=== PATIENT | female | born 1955 | race African-American/Black ===

== ENCOUNTER → 2016-12-06 | Outpatient (CLI) | payer BC ==
[2016-12-06 08:04] LABS: ALT 41 U/L (9-52); AST 32 U/L (14-36); Alkaline Phosphatase 118 U/L (38-126); Anion Gap 9 mmol/L; Blood Urea Nitrogen 12 mg/dL (7-17); Calcium 9.5 mg/dL (8.4-10.2); Carbon Dioxide 32 mmol/L (22-30); Chloride 103 mmol/L (98-107); Cholesterol 213 mg/dL (<200); Glucose 95 mg/dL (74-99); HDL Cholesterol 49 mg/dL (40-60); Non-African American GFR(MDRD) >60 (>60 ml/min/1.73 sqM); Potassium 4.2 mmol/L (3.5-5.1); Sodium 144 mmol/L (137-145); Total Bilirubin 0.8 mg/dL (0.2-1.3); Total Protein 7.1 g/dL (6.3-8.2); Triglycerides 117 mg/dL (<150)
== END | disposition home or self-care (01) ==
LOC: LABWHC1 06:44
PROVIDERS: ATTEND Family Medicine
DX: E03.9 Hypothyroidism, unspecified (principal); E78.5 Hyperlipidemia, unspecified; E56.9 Vitamin deficiency, unspecified
CPT/HCPCS: 36415; 80053; 80061; 82306; 84439; 84443

== ENCOUNTER → 2017-02-16 | Outpatient (CLI) | payer BC ==
--- NOTE | 2017-02-19 09:54 | MM ---
Reason for exam: screening (asymptomatic). Last mammogram was performed 1 year ago. History: Patient is postmenopausal. Physical Findings: A clinical breast exam by your physician is recommended on an annual basis and results should be correlated with mammographic findings. MG 3D Screening Mammo W/Cad Bilateral CC and MLO view(s) were taken. Prior study comparison: February 16, 2016, bilateral MG 3d screening mammo w/cad. February 09, 2015, bilateral MG screening mammo w CAD. The breast tissue is almost entirely fat. There is no discrete abnormality. No significant changes when compared with prior studies. ASSESSMENT: Negative, BI-RAD 1 RECOMMENDATION: Routine screening mammogram of both breasts in 1 year.
== END | disposition home or self-care (01) ==
LOC: RADMAMWWP 08:44
PROVIDERS: ATTEND Obstetrics & Gynecology
DX: Z12.31 Encounter for screening mammogram for malignant neoplasm of breast (principal)
CPT/HCPCS: 77063; G0202

== ENCOUNTER → 2017-06-22 | Outpatient (CLI) | payer BC ==
[2017-06-22 08:29] LABS: Basophils # (A) 0.1 k/uL (0-0.2); Basophils % (A) 1 %; CH 27.2; CHCM 32.2; Eosinophils # (A) 0.1 k/uL (0-0.7); Eosinophils % (A) 2 %; HCT 42.9 % (34.0-46.0); HDW 2.58; HGB 13.7 gm/dL (11.4-16.0); Luc # (Auto) 0.13; Luc % (Auto) 2; Lymphocytes # (A) 2.5 k/uL (1.0-4.8); Lymphocytes % (A) 42 %; MCHC 31.9 g/dL (31.0-37.0); MCV 84.9 fL (80.0-100.0); Mean Platelet Volume 7.8; Monocytes # (A) 0.2 k/uL (0-1.0); Monocytes % (A) 4 %; Neutrophils # (A) 2.9 k/uL (1.3-7.7); Neutrophils % (A) 50 %; RBC 5.06 m/uL (3.80-5.40); RDW 15.5 % (11.5-15.5); WBC 5.9 k/uL (3.8-10.6); WBC (Perox) 5.43
[2017-06-22 09:00] LABS: ALT 34 U/L (9-52); AST 24 U/L (14-36); Alkaline Phosphatase 149 U/L (38-126); Anion Gap 9 mmol/L; Blood Urea Nitrogen 12 mg/dL (7-17); Calcium 9.6 mg/dL (8.4-10.2); Carbon Dioxide 26 mmol/L (22-30); Chloride 108 mmol/L (98-107); Cholesterol 204 mg/dL (<200); Glucose 90 mg/dL (74-99); HDL Cholesterol 46 mg/dL (40-60); Non-African American GFR(MDRD) >60 (>60 ml/min/1.73 sqM); Potassium 3.9 mmol/L (3.5-5.1); Sodium 143 mmol/L (137-145); Total Bilirubin 0.6 mg/dL (0.2-1.3)
== END | disposition home or self-care (01) ==
LOC: LABWHC1 07:25
PROVIDERS: ATTEND Family Medicine
DX: E05.90 Thyrotoxicosis, unspecified without thyrotoxic crisis or storm (principal); E78.5 Hyperlipidemia, unspecified; I10 Essential (primary) hypertension; E55.9 Vitamin D deficiency, unspecified
CPT/HCPCS: 36415; 80053; 80061; 82306; 84439; 84443; 84481; 85025

== ENCOUNTER → 2017-12-20 | Outpatient (CLI) | payer BC ==
[2017-12-20 07:27] LABS: Basophils # (A) 0.1 k/uL (0-0.2); Basophils % (A) 1 %; Eosinophils # (A) 0.1 k/uL (0-0.7); Eosinophils % (A) 1 %; HCT 43.9 % (34.0-46.0); HGB 14.2 gm/dL (11.4-16.0); Lymphocytes # (A) 2.4 k/uL (1.0-4.8); Lymphocytes % (A) 38 %; MCH 26.4 pg (25.0-35.0); MCHC 32.4 g/dL (31.0-37.0); MCV 81.3 fL (80.0-100.0); Mean Platelet Volume 7.3; Monocytes # (A) 0.3 k/uL (0-1.0); Monocytes % (A) 5 %; Neutrophils # (A) 3.2 k/uL (1.3-7.7); Neutrophils % (A) 52 %; Platelet Count 260 k/uL (150-450); RDW 14.2 % (11.5-15.5); WBC 6.2 k/uL (3.8-10.6)
[2017-12-20 07:35] LABS: ALT 33 U/L (9-52); AST 26 U/L (14-36); Alkaline Phosphatase 144 U/L (38-126); Anion Gap 9 mmol/L; Calcium 9.7 mg/dL (8.4-10.2); Carbon Dioxide 28 mmol/L (22-30); Chloride 106 mmol/L (98-107); Cholesterol 196 mg/dL (<200); Glucose 94 mg/dL (74-99); HDL Cholesterol 44 mg/dL (40-60); LDL Cholesterol,Calculated 123 mg/dL (0-99); Sodium 143 mmol/L (137-145); Total Bilirubin 0.6 mg/dL (0.2-1.3); Total Protein 7.1 g/dL (6.3-8.2); Triglycerides 147 mg/dL (<150)
[2017-12-20 07:49] LABS: Blood Urea Nitrogen 13 mg/dL (7-17); T4, Free (Free Thyroxine) 1.02 ng/dL (0.78-2.19)
[2017-12-20 11:34] LABS: Vitamin D 25 Hydroxy 54.1 ng/mL (30.0-100.0)
[2017-12-20 12:22] LABS: Hepatitis C IgG Antibody Non-Reactive (Non-Reactive)
== END | disposition home or self-care (01) ==
LOC: LABWHC1 06:34
PROVIDERS: ATTEND Family Medicine
DX: Z00.00 Encounter for general adult medical examination without abnormal findings (principal); I10 Essential (primary) hypertension; E03.9 Hypothyroidism, unspecified; E55.9 Vitamin D deficiency, unspecified; Z11.59 Encounter for screening for other viral diseases
CPT/HCPCS: 36415; 80053; 80061; 82306; 84439; 84443; 84481; 85025; 86803

== ENCOUNTER → 2018-02-21 | Outpatient (CLI) | payer BC ==
--- NOTE | 2018-02-21 08:46 | MM ---
Reason for exam: screening (asymptomatic). Last mammogram was performed 1 year ago. History: Patient is postmenopausal. Physical Findings: A clinical breast exam by your physician is recommended on an annual basis and results should be correlated with mammographic findings. MG 3D Screening Mammo W/Cad Bilateral CC and MLO view(s) were taken. Prior study comparison: February 16, 2017, bilateral MG 3d screening mammo w/cad. February 16, 2016, bilateral MG 3d screening mammo w/cad. There are scattered fibroglandular densities. No suspicious abnormality. No significant changes when compared with prior studies. ASSESSMENT: Negative, BI-RAD 1 RECOMMENDATION: Routine screening mammogram of both breasts in 1 year.
== END | disposition home or self-care (01) ==
LOC: RADMAMWWP 06:53
PROVIDERS: ATTEND Obstetrics & Gynecology
DX: Z12.31 Encounter for screening mammogram for malignant neoplasm of breast (principal)
CPT/HCPCS: 77063; 77067

== ENCOUNTER → 2018-03-08 | Outpatient (CLI) | payer BC ==
--- NOTE | 2018-03-08 10:00 | BD ---
EXAMINATION TYPE: Axial Bone Density DATE OF EXAM: 03/08/2018 COMPARISON: 02.07.2013 CLINICAL HISTORY: 62 YR OLD FEMALE....ICD-10 CODE: Z13.820 SCREENING Height: 65 Weight: 246 FRAX RISK QUESTIONS: NONE TO NOTE RISK FACTORS HISTORY OF: HX OF FX TO RT ANKLE, WITH SURGICAL REPAIR When: > 50 YRS OLD Active: YES Diet low in dairy products/other sources of calcium: NO Postmenopausal woman: YES AT AGE 51 MEDICATIONS: Thyroid Medications: YES ARMOR THYROID, X15 YRS Additional Medications: BP MEDS, REFLUX, VIT D Additional History: HYPERTENSION EXAM MEASUREMENTS: Bone mineral densitometry was performed using the [employer] System. Bone mineral density as measured about the Lumbar spine is: ----- L1-L4(G/cm2): 1.463 T Score Values are as follows: ----- L1: 0.9 ----- L2: 1.3 ----- L3: 3.1 ----- L4: 3.4 ----- L1-L4: 2.4 Bone mineral density has: Decreased -1.8% since study of: 02.07.2013 Bone mineral density about the R hip (g/cm2): 0.945 Bone mineral density about the L hip (g/cm2): 1.032 T Score values are as follows: -----R Neck: 0.1 -----L Neck: -0.1 -----R Total: -0.5 -----L Total: 0.2 Bone mineral density has: Decreased -1.3% since study of: 02.07.2013 FRAX%S: THERE IS A 4.3% CHANCE OF A MAJOR OSTEOPOROTIC FX AND A 0.1% FOR HIP FX......PROBABILITY O F FX IN 10 YRS TIME IMPRESSION: Normal (Values between +1 and -1 indicate normal bone mass). Consider repeating this study in 5 year s or sooner if there is some new clinical indication. NOTE: T-SCORE=SD OF THE YOUNG ADULT MEAN.
== END | disposition home or self-care (01) ==
LOC: RADBDWWP 07:44
PROVIDERS: ATTEND Obstetrics & Gynecology
DX: Z13.820 Encounter for screening for osteoporosis (principal)
CPT/HCPCS: 77080

== ENCOUNTER → 2018-05-23 | Outpatient (CLI) | payer BC ==
[2018-05-23 07:24] LABS: Basophils % (A) 1 %; Eosinophils # (A) 0.1 k/uL (0-0.7); Eosinophils % (A) 1 %; HCT 42.8 % (34.0-46.0); HGB 13.5 gm/dL (11.4-16.0); Lymphocytes # (A) 2.8 k/uL (1.0-4.8); Lymphocytes % (A) 39 %; MCH 26.8 pg (25.0-35.0); MCHC 31.6 g/dL (31.0-37.0); MCV 84.8 fL (80.0-100.0); Mean Platelet Volume 7.3; Monocytes # (A) 0.4 k/uL (0-1.0); Monocytes % (A) 5 %; Neutrophils # (A) 3.8 k/uL (1.3-7.7); Neutrophils % (A) 52 %; Platelet Count 240 k/uL (150-450); RBC 5.05 m/uL (3.80-5.40); RDW 14.7 % (11.5-15.5); WBC 7.2 k/uL (3.8-10.6)
[2018-05-23 09:07] LABS: ALT 32 U/L (9-52); AST 23 U/L (14-36); Albumin 3.9 g/dL (3.5-5.0); Alkaline Phosphatase 127 U/L (38-126); Anion Gap 6 mmol/L; Blood Urea Nitrogen 20 mg/dL (7-17); Calcium 9.5 mg/dL (8.4-10.2); Carbon Dioxide 30 mmol/L (22-30); Chloride 105 mmol/L (98-107); Cholesterol 188 mg/dL (<200); Glucose 89 mg/dL (74-99); HDL Cholesterol 52 mg/dL (40-60); LDL Cholesterol,Calculated 120 mg/dL (0-99); Potassium 4.9 mmol/L (3.5-5.1); Sodium 141 mmol/L (137-145); Total Bilirubin 0.5 mg/dL (0.2-1.3); Total Protein 6.9 g/dL (6.3-8.2); Triglycerides 79 mg/dL (<150)
[2018-05-23 09:24] LABS: T4, Free (Free Thyroxine) 0.76 ng/dL (0.78-2.19)
== END | disposition home or self-care (01) ==
LOC: LABWHC1 06:39
PROVIDERS: ATTEND Family Medicine
DX: E78.5 Hyperlipidemia, unspecified (principal); E03.9 Hypothyroidism, unspecified; I10 Essential (primary) hypertension
CPT/HCPCS: 36415; 80053; 80061; 84439; 84443; 84481; 85025

== ENCOUNTER → 2018-11-20 | Outpatient (CLI) | payer BC ==
[2018-11-20 16:48] LABS: ALT 32 U/L (8-44); AST 34 U/L (13-35); Albumin/Globulin Ratio 1.75 (1.60-3.17); Alkaline Phosphatase 144 U/L (41-126); Calcium 9.3 mg/dL (8.7-10.3); Carbon Dioxide 30.2 mmol/L (21.6-31.8); Chloride 107 mmol/L (96-109); Cholesterol 193 mg/dL (0-200); Globulin 2.4 g/dL (1.6-3.3); Glucose 93 mg/dL (70-110); LDL Cholesterol,Calculated 123.8 mg/dL (0.0-131.0); Potassium 4.2 mmol/L (3.5-5.5); Sodium 142 mmol/L (135-145); Total Bilirubin 0.7 mg/dL (0.3-1.2); Total Protein 6.6 g/dL (6.2-8.2)
== END ==
LOC: LABWHC1 09:00
PROVIDERS: ATTEND Family Medicine
DX: E03.9 Hypothyroidism, unspecified (principal); E78.5 Hyperlipidemia, unspecified; I10 Essential (primary) hypertension
CPT/HCPCS: 36415; 80053; 80061; 82306; 84439; 84443

== ENCOUNTER → 2019-02-26 | Outpatient (CLI) | payer BC ==
--- NOTE | 2019-02-27 10:55 | MM ---
Reason for exam: screening (asymptomatic). Last mammogram was performed 1 year ago. History: Patient is postmenopausal. Physical Findings: A clinical breast exam by your physician is recommended on an annual basis and results should be correlated with mammographic findings. MG 3D Screening Mammo W/Cad Bilateral CC and MLO view(s) were taken. Prior study comparison: February 21, 2018, bilateral MG 3d screening mammo w/cad. February 16, 2017, bilateral MG 3d screening mammo w/cad. There are scattered fibroglandular densities. No suspicious abnormality. No significant changes when compared with prior studies. ASSESSMENT: Negative, BI-RAD 1 RECOMMENDATION: Routine screening mammogram of both breasts in 1 year.
== END | disposition home or self-care (01) ==
LOC: RADMAMWWP 09:02
PROVIDERS: ATTEND Obstetrics & Gynecology
DX: Z12.31 Encounter for screening mammogram for malignant neoplasm of breast (principal)
CPT/HCPCS: 77063; 77067

== ENCOUNTER → 2019-05-29 | Outpatient (CLI) | payer BC ==
[2019-05-29 10:37] LABS: Basophils % (A) 1 %; Eosinophils # (A) 0.1 k/uL (0-0.7); Eosinophils % (A) 1 %; HCT 42.8 % (34.0-46.0); HGB 13.5 gm/dL (11.4-16.0); Lymphocytes # (A) 1.8 k/uL (1.0-4.8); Lymphocytes % (A) 38 %; MCH 26.5 pg (25.0-35.0); MCHC 31.5 g/dL (31.0-37.0); MCV 84.3 fL (80.0-100.0); Mean Platelet Volume 7.3; Monocytes # (A) 0.3 k/uL (0-1.0); Monocytes % (A) 6 %; Neutrophils # (A) 2.6 k/uL (1.3-7.7); Neutrophils % (A) 52 %; Platelet Count 204 k/uL (150-450); RBC 5.08 m/uL (3.80-5.40); RDW 14.7 % (11.5-15.5); WBC 4.9 k/uL (3.8-10.6)
[2019-05-29 16:41] LABS: ALT 19 U/L (8-44); AST 23 U/L (13-35); African American GFR (CKD) 91.6 (60.0-200.0); Albumin/Globulin Ratio 1.67 (1.60-3.17); Alkaline Phosphatase 134 U/L (41-126); Calcium 9.3 mg/dL (8.7-10.3); Carbon Dioxide 27.6 mmol/L (21.6-31.8); Chloride 109 mmol/L (96-109); Cholesterol 184 mg/dL (0-200); Globulin 2.4 g/dL (1.6-3.3); Glucose 89 mg/dL (70-110); LDL Cholesterol,Calculated 120.2 mg/dL (0.0-131.0); Potassium 4.3 mmol/L (3.5-5.5); Sodium 142 mmol/L (135-145); Total Bilirubin 0.7 mg/dL (0.3-1.2); Total Protein 6.4 g/dL (6.2-8.2)
== END ==
LOC: LABWHC1 09:32
PROVIDERS: ATTEND Nurse Practitioner Adult Health
DX: Z00.00 Encounter for general adult medical examination without abnormal findings (principal); I10 Essential (primary) hypertension; E03.9 Hypothyroidism, unspecified
CPT/HCPCS: 36415; 80053; 80061; 82306; 84439; 84443; 84481; 85025

== ENCOUNTER → 2019-12-15 | Outpatient (CLI) | payer BC | END | disposition home or self-care (01) | CPT/HCPCS: 36415; 82306; 83036; 84439; 84443; 84481; 86376 ==

== ENCOUNTER → 2020-03-17 | Outpatient (CLI) | payer BC ==
--- NOTE | 2020-03-18 10:43 | MM ---
Reason for exam: screening (asymptomatic). Last mammogram was performed 1 year and 1 month ago. History: Patient is postmenopausal. Physical Findings: A clinical breast exam by your physician is recommended on an annual basis and results should be correlated with mammographic findings. MG 3D Screening Mammo W/Cad Bilateral CC and MLO view(s) were taken. Prior study comparison: February 26, 2019, bilateral MG 3d screening mammo w/cad. February 21, 2018, bilateral MG 3d screening mammo w/cad. There are scattered fibroglandular densities. No significant changes when compared with prior studies. ASSESSMENT: Negative, BI-RAD 1 RECOMMENDATION: Routine screening mammogram of both breasts in 1 year.
== END | disposition home or self-care (01) ==
LOC: RADMAMWWP 07:18
PROVIDERS: ATTEND Obstetrics & Gynecology
DX: Z12.31 Encounter for screening mammogram for malignant neoplasm of breast (principal)
CPT/HCPCS: 77063; 77067

== ENCOUNTER → 2020-06-04 | Outpatient (CLI) | payer BC ==
[2020-06-04 11:26] LABS: Basophils % (A) 1 %; Eosinophils # (A) 0.1 k/uL (0-0.7); Eosinophils % (A) 1 %; HCT 45.1 % (34.0-46.0); HGB 14.3 gm/dL (11.4-16.0); Hypochromasia Slight; Lymphocytes # (A) 2.4 k/uL (1.0-4.8); Lymphocytes % (A) 41 %; MCH 26.7 pg (25.0-35.0); MCHC 31.6 g/dL (31.0-37.0); MCV 84.5 fL (80.0-100.0); Mean Platelet Volume 7.6; Monocytes # (A) 0.3 k/uL (0-1.0); Monocytes % (A) 4 %; Neutrophils % (A) 51 %; Platelet Count 220 k/uL (150-450); RBC 5.34 m/uL (3.80-5.40); RDW 13.9 % (11.5-15.5); WBC 5.9 k/uL (3.8-10.6)
[2020-06-04 18:05] LABS: T4, Free (Free Thyroxine) 1.2 ng/dL (0.80-1.80)
[2020-06-04 18:23] LABS: African American GFR (CKD) 90.9 (60.0-200.0); Albumin 4.3 g/dL (3.80-4.90); Albumin/Globulin Ratio 1.59 (1.60-3.17); Anion Gap 7.2 mmol/L (4.00-12.00); Calcium 9.6 mg/dL (8.7-10.3); Carbon Dioxide 28.8 mmol/L (21.6-31.8); Globulin 2.7 g/dL (1.6-3.3); Non-African American GFR(CKD) 78.5 (60.0-200.0); Potassium 4.7 mmol/L (3.5-5.5); Total Bilirubin 0.7 mg/dL (0.2-1.2)
[2020-06-04 20:14] LABS: Hemoglobin A1C 5.6 % (4.0-6.0)
== END | disposition home or self-care (01) ==
LOC: LABWHC1 09:32
PROVIDERS: ATTEND Family Medicine
DX: I10 Essential (primary) hypertension (principal); E78.5 Hyperlipidemia, unspecified; E03.9 Hypothyroidism, unspecified
CPT/HCPCS: 36415; 80053; 82306; 83036; 84439; 84443; 84481; 85025

== ENCOUNTER → 2020-12-17 | Outpatient (CLI) | payer BC ==
[2020-12-17 14:43] LABS: Basophils # (A) 0.03 X 10*3/uL (0.00-0.10); Basophils % (A) 0.4 %; Eosinophils # (A) 0.04 X 10*3/uL (0.04-0.35); Eosinophils % (A) 0.6 %; HCT 42.5 % (37.2-46.3); HGB 13.3 g/dL (12.0-15.0); Lymphocytes # (A) 2.33 X 10*3/uL (0.90-5.00); Lymphocytes % (A) 34.5 %; MCH 26.8 pg (27.0-32.0); MCHC 31.3 g/dL (32.0-37.0); MCV 85.7 fL (80.0-97.0); Mean Platelet Volume 10.5 fL (9.5-12.2); Monocytes # (A) 0.45 X 10*3/uL (0.20-1.00); Monocytes % (A) 6.7 %; Neutrophils % (A) 57.7 %; Platelet Count 245 X 10*3/uL (140-440); RBC 4.96 X 10*6/uL (4.10-5.20); RDW 14.6 % (11.5-14.5); WBC 6.76 X 10*3/uL (4.50-10.00)
[2020-12-17 15:40] LABS: ALT 23 U/L (8-44); AST 19 U/L (13-35); African American GFR (CKD) 90.3 (60.0-200.0); Albumin/Globulin Ratio 1.72 (1.60-3.17); Alkaline Phosphatase 120 U/L (41-126); BUN/Creat Ratio 21.25 Ratio (12.00-20.00); Calcium 9.8 mg/dL (8.7-10.3); Chloride 107 mmol/L (96-109); Cholesterol 216 mg/dL (0-200); Creatine Kinase 110 U/L (26-186); Globulin 2.5 g/dL (1.6-3.3); Glucose 88 mg/dL (70-110); Non-African American GFR(CKD) 77.9 (60.0-200.0); Potassium 4.4 mmol/L (3.5-5.5); Sodium 142 mmol/L (135-145); Total Bilirubin 0.8 mg/dL (0.2-1.2); Total Protein 6.8 g/dL (6.2-8.2)
== END | disposition home or self-care (01) ==
LOC: LABWHC1 09:03
PROVIDERS: ATTEND Family Medicine
DX: E03.9 Hypothyroidism, unspecified (principal); E78.5 Hyperlipidemia, unspecified; I10 Essential (primary) hypertension
CPT/HCPCS: 36415; 80053; 80061; 82306; 82550; 84439; 84443; 84481; 85025

== ENCOUNTER → 2021-01-27 | Outpatient (CLI) | payer BC ==
--- NOTE | 2021-01-27 14:48 | CT ---
EXAMINATION TYPE: CT brain wo con DATE OF EXAM: 01/27/2021 HISTORY: dizziness and giddiness CT DLP: 1112 mGycm. Automated Exposure Control for Dose Reduction was Utilized. TECHNIQUE: CT scan of the head is performed without contrast. COMPARISON: CT brain July 04, 2016. FINDINGS: There is no acute intracranial hemorrhage or midline shift identified. There is mild diff use ventricular and sulcal prominence consistent with diffuse age-related cerebral atrophy. There is minimal low-attenuation in the periventricular white matter consistent with chronic small vessel isc hemic change. The globes are intact and the visualized sinuses are clear. The calvarium is intact. Persistent anterior metopic suture. IMPRESSION: No acute intracranial hemorrhage or midline shift. There is mild diffuse age-related ce rebral atrophy and minimal chronic small vessel ischemic change redemonstrated. No significant olguin e from prior CT.
== END | disposition home or self-care (01) ==
LOC: RADCTMAIN 14:13
PROVIDERS: ATTEND Physician Assistant
DX: G31.9 Degenerative disease of nervous system, unspecified (principal); I67.82 Cerebral ischemia
CPT/HCPCS: 70450

== ENCOUNTER → 2021-03-21 | Outpatient (CLI) | payer BC ==
--- NOTE | 2021-03-22 10:09 | MM ---
Reason for exam: screening (asymptomatic). Last mammogram was performed 1 year ago. History: Patient is postmenopausal. Physical Findings: A clinical breast exam by your physician is recommended on an annual basis and results should be correlated with mammographic findings. MG 3D Screening Mammo W/Cad Bilateral CC and MLO view(s) were taken. Prior study comparison: March 17, 2020, bilateral MG 3d screening mammo w/cad. February 26, 2019, bilateral MG 3d screening mammo w/cad. There are scattered fibroglandular densities. ASSESSMENT: Negative, BI-RAD 1 RECOMMENDATION: Routine screening mammogram of both breasts in 1 year.
== END | disposition home or self-care (01) ==
LOC: RADMAMWWP 10:11
PROVIDERS: ATTEND Obstetrics & Gynecology
DX: Z12.31 Encounter for screening mammogram for malignant neoplasm of breast (principal); Z78.0 Asymptomatic menopausal state
CPT/HCPCS: 77063; 77067

== ENCOUNTER → 2021-06-09 | Outpatient (CLI) | payer BC ==
[2021-06-09 19:17] LABS: Basophils # (A) 0.03 X 10*3/uL (0.00-0.10); Basophils % (A) 0.6 %; Eosinophils # (A) 0.07 X 10*3/uL (0.04-0.35); Eosinophils % (A) 1.3 %; HCT 43.2 % (37.2-46.3); HGB 12.9 g/dL (12.0-15.0); Lymphocytes # (A) 1.96 X 10*3/uL (0.90-5.00); Lymphocytes % (A) 37.5 %; MCH 26.3 pg (27.0-32.0); MCHC 29.9 g/dL (32.0-37.0); Mean Platelet Volume 10.9 fL (9.5-12.2); Monocytes # (A) 0.35 X 10*3/uL (0.20-1.00); Monocytes % (A) 6.7 %; Neutrophils # (A) 2.81 X 10*3/uL (1.80-7.70); Neutrophils % (A) 53.9 %; Platelet Count 227 X 10*3/uL (140-440); RBC 4.91 X 10*6/uL (4.10-5.20); RDW 14.2 % (11.5-14.5); WBC 5.22 X 10*3/uL (4.50-10.00)
[2021-06-09 19:57] LABS: Hemoglobin A1C 5.2 % (4.0-6.0)
[2021-06-10 01:53] LABS: ALT 32 U/L (8-44); AST 33 U/L (13-35); African American GFR (CKD) 90.3 (60.0-200.0); Albumin/Globulin Ratio 1.54 (1.60-3.17); Alkaline Phosphatase 133 U/L (41-126); Calcium 9.6 mg/dL (8.7-10.3); Chloride 108 mmol/L (96-109); Chol/HDL Ratio 3.96; Cholesterol 210 mg/dL (0-200); Globulin 2.8 g/dL (1.6-3.3); Glucose 81 mg/dL (70-110); LDL Cholesterol,Calculated 133.8 mg/dL (0.0-131.0); Non-African American GFR(CKD) 77.9 (60.0-200.0); Potassium 4.6 mmol/L (3.5-5.5); Sodium 144 mmol/L (135-145); Total Bilirubin 0.7 mg/dL (0.2-1.2); Total Protein 7.1 g/dL (6.2-8.2)
== END | disposition home or self-care (01) ==
LOC: LABWHC1 09:38
PROVIDERS: ATTEND Family Medicine
DX: Z13.1 Encounter for screening for diabetes mellitus (principal); E03.9 Hypothyroidism, unspecified; E78.5 Hyperlipidemia, unspecified; E55.9 Vitamin D deficiency, unspecified; I10 Essential (primary) hypertension
CPT/HCPCS: 36415; 80053; 80061; 82306; 83036; 84439; 84443; 85025

== ENCOUNTER → 2021-07-04 | Outpatient (CLI) | payer BC ==
--- NOTE | 2021-07-04 15:58 | US ---
EXAMINATION TYPE: US carotid duplex BILAT DATE OF EXAM: 07/04/2021 COMPARISON: NONE CLINICAL HISTORY: R09.89 other specified symptoms symptoms and signs. Bruit, no h/o stroke EXAM MEASUREMENTS: RIGHT: Peak Systolic Velocity (PSV) cm/sec ----- Right CCA: 59.1 ----- Right ICA: 126.0 ----- Right ECA: 66.8 ICA/CCA ratio: 2.1 RIGHT: End Diastole cm/sec ----- Right CCA: 22.1 ----- Right ICA: 50.5 ----- Right ECA: 0 LEFT: Peak Systolic Velocity (PSV) cm/sec ----- Left CCA: 60.1 ----- Left ICA: 163.0 ----- Left ECA: 51.0 ICA/CCA ratio: 2.7 LEFT: End Diastole cm/sec ----- Left CCA: 18.8 ----- Left ICA: 56.2 ----- Left ECA: 0.0 VERTEBRALS (direction of flow): Right Vertebral: Antegrade Left Vertebral: Antegrade Rhythm: Normal Compensation And Benefits Administrator notes: Mild homogeneous plaque seen bilaterally. IMPRESSION: Mildly elevated velocities in the bilateral proximal ICAs. Measurements suggest 50-69% proximal ICA s tenosis on both sides (left greater than right). Criteria for Assigning % of Stenosis / Diameter reduction (Estimation based on the indirect measurements of the internal carotid artery velocities (ICA PSV). 1. Normal (no stenosis)=ICA PSV < 125 cm/s: ratio < 2.0: ICA EDV<40 cm/s. 2. Less than 50% stenosis=ICA PSV < 125 cm/s: ratio < 2.0: ICA EDV<40 cm/s. 3. 50 to 69% stenosis=ICA PSV of 125 to 230 cm/s: ration 2.0 ? 4.0: ICA EDV 40-100 cm/s. 4. Greater than 70% stenosis to near occlusion= ICA PSV > 230 cm/s: ratio > 4.0: ICA EDV > 100 cm/s. 5. Near occlusion= ICA PSV velocities may be low or undetectable: variable ratio and ICA EDV. 6. Total occlusion=unable to detect flow.
== END | disposition home or self-care (01) ==
LOC: RADUSWWP 14:25
PROVIDERS: ATTEND Family Medicine
DX: I65.23 Occlusion and stenosis of bilateral carotid arteries (principal)
CPT/HCPCS: 93880

== ENCOUNTER → 2021-07-12 | Outpatient (CLI) | payer BC ==
--- NOTE | 2021-07-13 09:27 | ECHOF ---
Referral Reason:R09.89other specified symptoms and signs involving MEASUREMENTS -------- HEIGHT: 165.1 cm WEIGHT: 99.8 kg BP: 125/62 RVIDd: 3.2 cm (< 3.3) IVSd: 1.3 cm (0.6 - 1.1) LVIDd: 4.4 cm (3.9 - 5.3) LVPWd: 1.2 cm (0.6 - 1.1) IVSs: 1.7 cm LVIDs: 2.9 cm LVPWs: 1.8 cm LA Diam: 3.3 cm (2.7 - 3.8) LAESV Index (A-L): 23.88 ml/m Ao Diam: 3.1 cm (2.0 - 3.7) AV Cusp: 2.2 cm (1.5 - 2.6) MV EXCURSION: 13.015 mm (> 18.000) MV EF SLOPE: 78 mm/s (70 - 150) EPSS: 0.7 cm MV E Manjeet: 0.71 m/s MV DecT: 259 ms MV A Manjeet: 0.99 m/s MV E/A Ratio: 0.71 RAP: 5.00 mmHg RVSP: 27.81 mmHg FINDINGS -------- Sinus rhythm. This was a technically adequate study. The left ventricular size is normal. There is mild concentric left ventricular hypertrophy. Overa ll left ventricular systolic function is normal with, an EF between 60 - 65 %. The right ventricle is normal in size. Normal LA size by volume 22+/-6 ml/m2. The right atrium is normal in size. Interatrial and interventricular septum intact. The aortic valve is trileaflet, and appears structurally normal. No aortic stenosis or regurgitation. Mild mitral annular calcification present. Mild tricuspid regurgitation present. Right ventricular systolic pressure is normal at < 35 mmHg. Trace/mild (physiologic) pulmonic regurgitation. The aortic root size is normal. Normal inferior vena cava with normal inspiratory collapse consistent with estimated right atrial pre ssure of 5 mmHg. There is no pericardial effusion. CONCLUSIONS -------- 1. The left ventricular size is normal. 2. There is mild concentric left ventricular hypertrophy. 3. Overall left ventricular systolic function is normal with, an EF between 60 - 65 %. 4. The aortic valve is trileaflet, and appears structurally normal. No aortic stenosis or regurgitati on. 5. Mild mitral annular calcification present. 6. Mild tricuspid regurgitation present. 7. Trace/mild (physiologic) pulmonic regurgitation. 8. There is no pericardial effusion. D[employer]ITAL MEDIA INTERN: Nalini Mckee RDCS
== END | disposition home or self-care (01) ==
LOC: RADECHMAIN 14:54
PROVIDERS: ATTEND Family Medicine
DX: I37.1 Nonrheumatic pulmonary valve insufficiency (principal); I34.8 Other nonrheumatic mitral valve disorders
CPT/HCPCS: 93306

== ENCOUNTER 2021-09-25 11:44 | Emergency (ER) | payer BC ==
[2021-09-25 12:15] VITALS: TEMP 98.2
[2021-09-25] MEDS ORDERED: SODIUM CHLORIDE 0.9% 500 ML 500 ML IV STA (13:19)
[2021-09-25] MEDS ORDERED: MORPHINE SULFATE 2 MG/ML SYRINGE IVP STA (13:19)
--- NOTE | 2021-09-25 13:23 | ED ---
General Adult HPI - General Chief complaint: Abdominal Pain Stated complaint: R side pain Time Seen by Provider: 09/25/21 13:10 Source: patient, RN notes reviewed, old records reviewed Mode of arrival: ambulatory Limitations: no limitations - History of Present Illness Initial comments: Well-appearing 65-year-old female presents to the emergency room, alert and oriented 4, with complaints of sudden onset of right-sided abdominal pain that started at 9:00 this morning. Patient states it is not related to eating. She's never had this pain before. She does have a history of hypertension and hypothyroidism. No abdominal surgeries. She denies any fevers, nausea vomiting or diarrhea. She states pain is sharp in nature and constant. It is worse with deep breath and palpation. -: hour(s) (4) Location: abdomen Radiation: non-radiation Severity scale (1-10): 8 Quality: sharp, constant Consistency: constant Improves with: none Worsens with: other (Deep breaths and palpation) Associated Symptoms: denies other symptoms Treatments Prior to Arrival: none - Related Data Home Medications Medication Instructions Recorded Confirmed Levothyroxine Sodium [Synthroid] 88 mcg PO QAM 09/21/14 12/21/15 amLODIPine BESYLATE [Norvasc] 5 mg PO QAM 09/21/14 12/21/15 Aspirin [Adult Low Dose Aspirin EC] 162 mg PO HS 12/16/15 12/21/15 Biotin 5 mg PO QAM 12/16/15 12/21/15 Cholecalciferol [Vitamin D3] 2,000 unit PO QAM 12/16/15 12/21/15 L.acidoph,Paracasei, B.lactis 1 each PO QAM 12/16/15 12/21/15 [Probiotic] Magnesium Citrate 296 ml PO HS 12/16/15 12/21/15 Multivitamins, Thera [Multivitamin] 1 tab PO DAILY 12/16/15 12/21/15 Edmond-3 Fatty Acids/Fish Oil [Fish 1 each PO QAM 12/16/15 12/21/15 Oil 1,000 mg Softgel] Vitamin B Complex 1 each PO QAM 12/16/15 12/21/15 Previous Rx's Medication Instructions Recorded Ibuprofen [Motrin] 600 mg PO Q8HR PRN #30 tab 09/25/21 Tamsulosin [Flomax] 0.4 mg PO DAILY #7 cap 09/25/21 Allergies Allergy/AdvReac Type Severity Reaction Status Date / Time Sulfa (Sulfonamide Allergy Rash/Hives Verified 09/25/21 12:14 Antibiotics) Review of Systems ROS Statement: Those systems with pertinent positive or pertinent negative responses have been documented in the HPI. ROS Other: All systems not noted in ROS Statement are negative. Past Medical History Past Medical History: Hypertension, Thyroid Disorder History of Any Multi-Drug Resistant Organisms: None Reported Additional Past Surgical History / Comment(s): Rt thyroidectomy, RT broken ankle requiring surgery Past Anesthesia/Blood Transfusion Reactions: No Reported Reaction Past Psychological History: No Psychological Hx Reported Smoking Status: Never smoker Past Alcohol Use History: None Reported Past Drug Use History: None Reported - Past Family History Mother Family Medical History: Cancer General Exam Limitations: no limitations General appearance: alert, in no apparent distress Head exam: Present: atraumatic, normocephalic, normal inspection Eye exam: Present: normal appearance, EOMI ENT exam: Present: normal exam, normal oropharynx, mucous membranes moist Neck exam: Present: normal inspection, full ROM. Absent: tenderness, meningismus, lymphadenopathy Respiratory exam: Present: normal lung sounds bilaterally. Absent: respiratory distress, wheezes, rales, rhonchi, stridor, chest wall tenderness, accessory muscle use Cardiovascular Exam: Present: regular rate, normal rhythm, normal heart sounds. Absent: systolic murmur, diastolic murmur, rubs, gallop, clicks, JVD GI/Abdominal exam: Present: soft, tenderness (Right mid abdominal), normal bowel sounds Extremities exam: Present: normal inspection, full ROM, normal capillary refill. Absent: tenderness, pedal edema, joint swelling, calf tenderness Back exam: Present: normal inspection. Absent: tenderness, CVA tenderness (R), CVA tenderness (L), rash noted Neurological exam: Present: alert, oriented X3, normal gait Psychiatric exam: Present: normal affect, normal mood Skin exam: Present: warm, dry, intact, normal color. Absent: rash, cyanosis, diaphoretic, petechiae Course Vital Signs 09/25/21 09/25/21 09/25/21 12:09 14:57 15:18 Temperature 98.2 F Pulse Rate 77 82 Respiratory 18 16 Rate Blood Pressure 153/85 186/101 157/86 O2 Sat by Pulse 99 98 Oximetry EKG Findings - EKG Results: EKG: sinus rhythm (ventricular rate of 70, MI interval 0.162, QRS 0.94, QTC 444) Medical Decision Making - Medical Decision Making Well-appearing 65-year-old female complains of sudden onset of right-sided abd ominal pain since 9:00 this morning. She states pain is sharp and constant. She denies any fevers, back pain, nausea, vomiting or diarrhea. CT the abdomen shows a 3 mm obstructing right distal ureteral calculus at the right UVJ . Her symptoms are consistent with a kidney stone. Urinalysis shows blood with no sign of infection. She has been afebrile with no costovertebral angle tenderness. She was given a urine strainer and directed to follow-up with urology. A prescription for Flomax and Motrin was prescribed. She was directed to return to the emergency room with any new or worsening symptoms including increased pain, difficulty urinating or fevers. Patient is agreeable to this plan of care. My attending is Dr. Chandler - Lab Data Result diagrams: 09/25/21 13:31 09/25/21 13:31 Lab Results 09/25/21 09/25/21 09/25/21 Range/Units 13:31 13:31 13:31 WBC 11.2 H (3.8-10.6) k/uL RBC 5.31 (3.80-5.40) m/uL Hgb 14.6 (11.4-16.0) gm/dL Hct 46.5 H (34.0-46.0) % MCV 87.5 (80.0-100.0) fL MCH 27.4 (25.0-35.0) pg MCHC 31.3 (31.0-37.0) g/dL RDW 13.6 (11.5-15.5) % Plt Count 253 (150-450) k/uL MPV 8.1 Neutrophils % 80 % Lymphocytes % 15 % Monocytes % 5 % Eosinophils % 0 % Basophils % 0 % Neutrophils # 8.9 H (1.3-7.7) k/uL Lymphocytes # 1.6 (1.0-4.8) k/uL Monocytes # 0.5 (0-1.0) k/uL Eosinophils # 0.0 (0-0.7) k/uL Basophils # 0.0 (0-0.2) k/uL Sodium 141 (137-145) mmol/L Potassium 4.5 (3.5-5.1) mmol/L Chloride 103 (98-107) mmol/L Carbon Dioxide 26 (22-30) mmol/L Anion Gap 12 mmol/L BUN 11 (7-17) mg/dL Creatinine 0.67 (0.52-1.04) mg/dL Est GFR (CKD-EPI)AfAm >90 (>60 ml/min/1.73 sqM) Est GFR (CKD-EPI)NonAf >90 (>60 ml/min/1.73 sqM) Glucose 104 H (74-99) mg/dL Plasma Lactic Acid Ramiro (0.7-2.0) mmol/L Calcium 9.7 (8.4-10.2) mg/dL Total Bilirubin 0.8 (0.2-1.3) mg/dL AST 36 (14-36) U/L ALT 19 (4-34) U/L Alkaline Phosphatase 139 H (38-126) U/L Troponin I (0.000-0.034) ng/mL Total Protein 8.2 (6.3-8.2) g/dL Albumin 4.5 (3.5-5.0) g/dL Amylase 56 (30-110) U/L Lipase 48 (23-300) U/L Urine Color Light Yellow Urine Appearance Clear (Clear) Urine pH 6.0 (5.0-8.0) Ur Specific [place] 1.005 (1.001-1.035) Urine Protein Negative (Negative) Urine Glucose (UA) Negative (Negative) Urine Ketones Negative (Negative) Urine Blood Small H (Negative) Urine Nitrite Negative (Negative) Urine Bilirubin Negative (Negative) Urine Urobilinogen <2.0 (<2.0) mg/dL Ur Leukocyte Esterase Negative (Negative) Urine RBC 1 (0-5) /hpf Urine WBC <1 (0-5) /hpf Urine Mucus Rare H (None) /hpf 09/25/21 09/25/21 Range/Units 13:31 13:31 WBC (3.8-10.6) k/uL RBC (3.80-5.40) m/uL Hgb (11.4-16.0) gm/dL Hct (34.0-46.0) % MCV (80.0-100.0) fL MCH (25.0-35.0) pg MCHC (31.0-37.0) g/dL RDW (11.5-15.5) % Plt Count (150-450) k/uL MPV Neutrophils % % Lymphocytes % % Monocytes % % Eosinophils % % Basophils % % Neutrophils # (1.3-7.7) k/uL Lymphocytes # (1.0-4.8) k/uL Monocytes # (0-1.0) k/uL Eosinophils # (0-0.7) k/uL Basophils # (0-0.2) k/uL Sodium (137-145) mmol/L Potassium (3.5-5.1) mmol/L Chloride (98-107) mmol/L Carbon Dioxide (22-30) mmol/L Anion Gap mmol/L BUN (7-17) mg/dL Creatinine (0.52-1.04) mg/dL Est GFR (CKD-EPI)AfAm (>60 ml/min/1.73 sqM) Est GFR (CKD-EPI)NonAf (>60 ml/min/1.73 sqM) Glucose (74-99) mg/dL Plasma Lactic Acid Ramiro 1.1 (0.7-2.0) mmol/L Calcium (8.4-10.2) mg/dL Total Bilirubin (0.2-1.3) mg/dL AST (14-36) U/L ALT (4-34) U/L Alkaline Phosphatase (38-126) U/L Troponin I <0.012 (0.000-0.034) ng/mL Total Protein (6.3-8.2) g/dL Albumin (3.5-5.0) g/dL Amylase (30-110) U/L Lipase (23-300) U/L Urine Color Urine Appearance (Clear) Urine pH (5.0-8.0) Ur Specific [place] (1.001-1.035) Urine Protein (Negative) Urine Glucose (UA) (Negative) Urine Ketones (Negative) Urine Blood (Negative) Urine Nitrite (Negative) Urine Bilirubin (Negative) Urine Urobilinogen (<2.0) mg/dL Ur Leukocyte Esterase (Negative) Urine RBC (0-5) /hpf Urine WBC (0-5) /hpf Urine Mucus (None) /hpf Disposition Clinical Impression: Kidney stone on right side Disposition: HOME SELF-CARE Condition: Good Instructions (If sedation given, give patient instructions): Kidney Stones (ED) Additional Instructions: Strain all your urine. Take medication as prescribed. You can take Motrin for inflammation and pain. Follow up with urology this week. Return to the emergency room with any new or worsening symptoms Prescriptions: Tamsulosin [Flomax] 0.4 mg PO DAILY #7 cap Ibuprofen [Motrin] 600 mg PO Q8HR PRN #30 tab PRN Reason: Pain Is patient prescribed a controlled substance at d/c from ED?: No Referrals: True Zuniga MD [Primary Care Provider] - 1-2 days Garth John MD [STAFF PHYSICIAN] - 1-2 days Time of Disposition: 14:59
[2021-09-25 13:53] LABS: Appearance,Urine Clear (Clear); Bilirubin,Urine Negative (Negative); Blood,Urine Small (Negative); Color,Urine Light Yellow; Glucose,Urine (UA) Negative (Negative); Ketones,Urine Negative (Negative); Leukocyte Esterase,Urine Negative (Negative); Mucus,Urine Rare /hpf; Nitrite,Urine Negative (Negative); Protein,Urine Negative (Negative); RBC,Urine 1 /hpf (0-5); Specific Gravity,Urine 1.005 (1.001-1.035); Urobilinogen,Urine <2.0 mg/dL (<2.0); WBC,Urine <1 /hpf (0-5)
[2021-09-25 14:03] LABS: Basophils % (A) 0 %; Eosinophils % (A) 0 %; HCT 46.5 % (34.0-46.0); HGB 14.6 gm/dL (11.4-16.0); Lymphocytes # (A) 1.6 k/uL (1.0-4.8); Lymphocytes % (A) 15 %; MCH 27.4 pg (25.0-35.0); MCHC 31.3 g/dL (31.0-37.0); MCV 87.5 fL (80.0-100.0); Mean Platelet Volume 8.1; Monocytes # (A) 0.5 k/uL (0-1.0); Monocytes % (A) 5 %; Neutrophils # (A) 8.9 k/uL (1.3-7.7); Neutrophils % (A) 80 %; Platelet Count 253 k/uL (150-450); RBC 5.31 m/uL (3.80-5.40); RDW 13.6 % (11.5-15.5); WBC 11.2 k/uL (3.8-10.6)
[2021-09-25 14:08] LABS: ALT 19 U/L (4-34); AST 36 U/L (14-36); African American GFR (CKD) >90 (>60 ml/min/1.73 sqM); Albumin 4.5 g/dL (3.5-5.0); Alkaline Phosphatase 139 U/L (38-126); Amylase 56 U/L (30-110); Anion Gap 12 mmol/L; Blood Urea Nitrogen 11 mg/dL (7-17); Calcium 9.7 mg/dL (8.4-10.2); Carbon Dioxide 26 mmol/L (22-30); Chloride 103 mmol/L (98-107); Glucose 104 mg/dL (74-99); Lipase 48 U/L (23-300); Non-African American GFR(CKD) >90 (>60 ml/min/1.73 sqM); Sodium 141 mmol/L (137-145); Total Bilirubin 0.8 mg/dL (0.2-1.3); Total Protein 8.2 g/dL (6.3-8.2)
[2021-09-25 14:12] LABS: Potassium 4.5 mmol/L (3.5-5.1)
--- NOTE | 2021-09-25 14:40 | CT ---
EXAMINATION TYPE: CT abdomen pelvis w con DATE OF EXAM: 09/25/2021 COMPARISON: None available HISTORY: Rt side abd pain CT DLP: 1856.6 mGycm. Automated Exposure Control for Dose Reduction was Utilized. TECHNIQUE: Multiple contiguous axial CT images of the abdomen and pelvis were obtained from the lung bases through the pubic symphysis with IV Contrast, patient injected with 100 mL of Isovue 300. 2-D s agittal and coronal reformatted images were obtained. FINDINGS: Lung bases are clear. Liver, spleen, pancreas, and right adrenal gland have an unremarkable enhanced appearance. Nonspecifi c 12 mm left adrenal nodule. Gallbladder is present. There is a focal area of hyperattenuation along the superior margin of the ga llbladder wall. No definite intrahepatic or extrahepatic biliary ductal dilatation. Kidneys are symmetric in size. Mild right-sided hydroureteronephrosis. 3 mm obstructing distal ureter al calculus at the right ureterovesicular junction. Multiple subcentimeter hypodensities bilaterally which are too small to characterize but likely renal cysts. No left-sided renal or ureteral calculi. Urinary bladder appears unremarkable. Uterus is present. No adnexal masses. Visualized bowel is of normal caliber without evidence of obstruction. No significant mesenteric infl ammation. Scattered colonic diverticulosis without adjacent inflammatory changes. Appendix appears un remarkable. No free air. Moderate atherosclerotic vascular calcifications of the infrarenal abdominal aorta and bilateral comm on iliac arteries without aneurysm. No intra-abdominal or retroperitoneal lymphadenopathy. Small fat- containing periumbilical hernia. Moderate degenerative changes of the lower lumbar spine most pronoun navid at the levels of L4-5 and L5-S1 which causes mild to moderate bilateral neural foraminal narrowin g. IMPRESSION: 1. 3 mm obstructing right distal ureteral calculus at the right ureterovesicular junction with mild u pstream hydroureteronephrosis. 2. Incompletely evaluated 12 mm adrenal nodule. This clearly represents a benign adenoma however, thi s can be further evaluated with CT or MRI per adrenal nodule protocol. 3. Nonspecific focal area of increased attenuation along the superior margin of the gallbladder wall. This can be further evaluated with gallbladder ultrasound as clinically indicated.
[2021-09-25] MEDS ORDERED: KETOROLAC 15 MG/ML 1 ML VIAL IVP STA (14:47)
[2021-09-25 14:57] VITALS: PULSE 82; RESP 16
[2021-09-25 15:18] VITALS: BP 157/86
--- NOTE | 2021-09-25 15:45 | XR ---
EXAMINATION TYPE: XR KUB DATE OF EXAM: 09/25/2021 3:08 PM CLINICAL HISTORY: Right-sided abdominal pain for one day TECHNIQUE: Two Upright KUB images of the abdomen are obtained. COMPARISON: CT abdomen/pelvis same day. FINDINGS: Contrast material is present throughout the bilateral urinary collecting systems. There is mild right -sided hydroureteronephrosis. Scattered gas is seen in non-distended small bowel loops. Gas and fecal material is seen in non-diste nded colon. There is no visceromegaly or pneumoperitoneum. Limited evaluation for calcifications to c ontrast material. The lung bases are clear and the osseous structures are intact. IMPRESSION: 1. Nonobstructive bowel gas pattern. 2. Contrast material is present from previous CT examination which demonstrates mild right-sided hydr oureteronephrosis. Limited evaluation for calcifications given the contrast material.
== END 2021-09-25 15:18 | disposition home or self-care (01) ==
LOC: EC 11:44
DX: N20.0 Calculus of kidney (principal); I10 Essential (primary) hypertension; E07.9 Disorder of thyroid, unspecified; Z79.82 Long term (current) use of aspirin; Z88.2 Allergy status to sulfonamides
CPT/HCPCS: 99285; 96374; 96375; 36415; 93005; 80053; 82150; 83605; 83690; 84484; 85025; 81001; 74018; 74177; J2270; J1885; Q9967; 99284

== ENCOUNTER → 2021-10-03 | Outpatient (CLI) | payer BC ==
--- NOTE | 2021-10-04 13:08 | US ---
EXAMINATION TYPE: US pelvic complete DATE OF EXAM: 10/03/2021 COMPARISON: CT 2020 CLINICAL HISTORY: R10.2 PELVIC PAIN. Left pelvic pain x 2 weeks, 2, para 2, history of tubal ligation TECHNIQUE: . Transabdominal sonographic images of the pelvis were acquired. Transvaginal sonographi c images were medically necessary to better assess the following anatomy: endometrium and ovaries Date of LMP: 14 years ago EXAM MEASUREMENTS: Uterus: 5.9 x 3.5 x 5.0 cm Endometrial Stripe: 0.3 cm Right Ovary: not seen Left Ovary: not seen 1. Uterus: anteverted, heterogeneous with multiple hypoechoic areas seen with largest measuring 1.3c m 2. Endometrium: appears wnl 3. Right Ovary: not seen due to overlying bowel gas 4. Left Ovary: not seen due to overlying bowel gas 5. Bilateral Adnexa: wnl 6. Posterior cul-de-sac: wnl IMPRESSION: 1. Small uterine fibroids likely present, the largest measures 1.3 cm.
== END | disposition home or self-care (01) ==
LOC: RADUSWWP 15:59
PROVIDERS: ATTEND Obstetrics & Gynecology
DX: N85.8 Other specified noninflammatory disorders of uterus (principal)
CPT/HCPCS: 76830; 76856

== ENCOUNTER → 2021-12-05 | Outpatient (CLI) | payer MEDICARE ==
[2021-12-05 14:53] LABS: Basophils # (A) 0.03 X 10*3/uL (0.00-0.10); Basophils % (A) 0.5 %; Eosinophils # (A) 0.12 X 10*3/uL (0.04-0.35); Eosinophils % (A) 2.2 %; HCT 42.8 % (37.2-46.3); HGB 13.2 g/dL (12.0-15.0); Immature Grans, Automated 0.4 %; Lymphocytes # (A) 1.97 X 10*3/uL (0.90-5.00); Lymphocytes % (A) 35.7 %; MCH 26.2 pg (27.0-32.0); MCHC 30.8 g/dL (32.0-37.0); MCV 84.9 fL (80.0-97.0); Mean Platelet Volume 10.8 fL (9.5-12.2); Monocytes % (A) 7.2 %; NRBC Per 100 WBC 0 /100 WBCS (0.0-0.0); Neutrophils # (A) 2.98 X 10*3/uL (1.80-7.70); Platelet Count 262 X 10*3/uL (140-440); RBC 5.04 X 10*6/uL (4.10-5.20); RDW 14.8 % (11.5-14.5); WBC 5.52 X 10*3/uL (4.50-10.00)
[2021-12-05 15:19] LABS: ALT 17 U/L (8-44); AST 23 U/L (13-35); African American GFR (CKD) 91.2 (60.0-200.0); Albumin 4.1 g/dL (3.8-4.9); Albumin/Globulin Ratio 1.24 (1.60-3.17); Alkaline Phosphatase 137 U/L (41-126); BUN/Creat Ratio 12.46 Ratio (12.00-20.00); Blood Urea Nitrogen 9.8 mg/dL (9.0-27.0); Calcium 9.6 mg/dL (8.7-10.3); Carbon Dioxide 25.3 mmol/L (20.0-27.5); Chloride 106 mmol/L (96-109); Chol/HDL Ratio 3.95 Ratio; Globulin 3.3 g/dL (1.6-3.3); Glucose 93 mg/dL (70-110); LDL Cholesterol,Calculated 125.3 mg/dL (0.0-131.0); Non-African American GFR(CKD) 78.7 (60.0-200.0); Potassium 4.1 mmol/L (3.5-5.5); Sodium 142 mmol/L (135-145); Total Protein 7.3 g/dL (6.2-8.2)
== END | disposition home or self-care (01) ==
LOC: LABWHC1 09:46
PROVIDERS: ATTEND Family Medicine
DX: Z13.1 Encounter for screening for diabetes mellitus (principal); E03.9 Hypothyroidism, unspecified; E78.5 Hyperlipidemia, unspecified; I10 Essential (primary) hypertension; E55.9 Vitamin D deficiency, unspecified
CPT/HCPCS: 36415; 80053; 80061; 82306; 83036; 84439; 84443; 85025

== ENCOUNTER → 2022-03-08 | Outpatient (CLI) | payer MEDICARE | END | disposition home or self-care (01) | LOC: LABWHC1 07:11 | PROVIDERS: ATTEND Urology | DX: D35.00 Benign neoplasm of unspecified adrenal gland (principal) | CPT/HCPCS: 36415; 82533; 83835 ==

== ENCOUNTER → 2022-03-31 | Outpatient (CLI) | payer MEDICARE ==
--- NOTE | 2022-04-05 13:45 | MM ---
Reason for Exam: Screening (asymptomatic). Last mammogram was performed 1 year(s) and 1 month(s) ago. Patient History: Menarche at age 14. First Full-Term at age 19. Postmenopausal. Risk Values: Tiffanie 5 year model risk: 1.2%. NCI Lifetime model risk: 4.6%. Prior Study Comparison: 02/26/2019 Bilateral Screening Mammogram, [facility]. 03/17/2020 Bilateral Screening Mammogram, [facility]. 03/21/2021 Bilateral Screening Mammogram, [facility]. Tissue Density: The breast tissue is almost entirely fat. Findings: Analyzed By CAD. There is no suspicious group of microcalcifications or new suspicious mass in either breast. Overall Assessment: Negative, BI-RAD 1 Management: Screening Mammogram of both breasts in 1 year. A clinical breast exam by your physician is recommended on an annual basis and results should be correlated with mammographic findings. Electronically signed and approved by: Mauricio Leonard M.D. Radiologis
== END | disposition home or self-care (01) ==
LOC: RADMAMWWP 14:45
PROVIDERS: ATTEND Obstetrics & Gynecology
DX: Z12.31 Encounter for screening mammogram for malignant neoplasm of breast (principal); Z78.0 Asymptomatic menopausal state
CPT/HCPCS: 77063; 77067

== ENCOUNTER → 2022-04-20 | Outpatient (CLI) | payer MEDICARE, BC ==
[2022-04-20 14:32] LABS: African American GFR (CKD) 89.7 (60.0-200.0); Blood Urea Nitrogen 14.6 mg/dL (9.0-27.0); Non-African American GFR(CKD) 77.4 (60.0-200.0)
== END | disposition home or self-care (01) ==
LOC: LABWHC1 07:47
PROVIDERS: ATTEND Urology
DX: D35.00 Benign neoplasm of unspecified adrenal gland (principal)
CPT/HCPCS: 36415; 82533; 82565; 84520

== ENCOUNTER → 2022-04-25 | Outpatient (CLI) | payer MEDICARE, BC ==
--- NOTE | 2022-04-25 09:12 | CT ---
EXAMINATION TYPE: CT adrenal glands wo/w con CT DLP: 1869 mGycm, Automated exposure control for dose reduction was used. DATE OF EXAM: 04/25/2022 8:55 AM COMPARISON: CT abdomen pelvis 09/25/2021 CLINICAL INDICATION:Female, 66 years old with history of D35.00 ADRENAL ADENOMA; TECHNIQUE: Standard CT of the abdomen was obtained before and after the uneventful administration o f 70 mL of Isovue-300 intravenously. Delayed imaging was performed. Oral contrast administered. Coron al and sagittal reformats were performed. FINDINGS: LOWER CHEST: Unremarkable ABDOMEN LIVER: Unremarkable GALLBLADDER AND BILE DUCTS: Unremarkable. PANCREAS: Unremarkable. SPLEEN: Unremarkable. ADRENAL GLANDS: Right adrenal gland is unremarkable. 1.2 cm stable lesion in the from the medial limb of the left adrenal gland. This demonstrates Hounsfield unit of 10 on noncontrast imaging. On the 60 to 75 second postcontrast imaging also unit is 48. On the 15 minute delayed imaging Hounsfield unit is 13. The absolute washout is 92.1%. KIDNEYS AND URETERS: No evidence of hydronephrosis or renal calculus. The ureters are unremarkable. STOMACH AND BOWEL: Visualized portions are unremarkable. The appendix is within normal limits. No yayo dence of bowel obstruction. PERITONEUM: No evidence of pneumoperitoneum or free fluid. VASCULATURE: Moderate atherosclerotic calcifications are present throughout the abdominal aorta and i ts branches. No evidence of aortic aneurysm. MUSCULOSKELETAL: No acute osseous abnormalities. Multilevel degenerative changes of the visualized sp ine most pronounced at L4-L5 and L5-S1. LYMPH NODES: No gross evidence for lymphadenopathy. SOFT TISSUE/ABDOMINAL WALL: Small fat filled umbilical hernia. IMPRESSION: Stable 1.2 cm left adrenal lesion consistent with a lipid rich benign adrenal adenoma.
== END | disposition home or self-care (01) ==
LOC: RADCTMAIN 03-31 15:07
PROVIDERS: ATTEND Urology
DX: D35.02 Benign neoplasm of left adrenal gland (principal)
CPT/HCPCS: 74170; Q9967 ×2

== ENCOUNTER → 2022-06-20 | Outpatient (CLI) | payer MEDICARE, BC | END | disposition home or self-care (01) | LOC: LABWHC1 09:42 | PROVIDERS: ATTEND Family Medicine | DX: I10 Essential (primary) hypertension (principal); E03.9 Hypothyroidism, unspecified; E78.5 Hyperlipidemia, unspecified; E55.9 Vitamin D deficiency, unspecified | CPT/HCPCS: 36415; 82306; 84439; 84443; 84481 ==

== ENCOUNTER 2022-12-18 05:34 | Observation (INO) | payer BC, MEDICARE ==
[2022-12-13 09:18] VITALS: BMI 37.4
--- NOTE | 2022-12-17 16:23 | P.HPOB ---
History of Present Illness H&P Date: 12/17/22 Chief Complaint: Uterine prolapse with cystocele and rectocele, pelvic pain This is a 67 y.o. female, 2, para 2, who presents for total vaginal hysterectomy with anterior and posterior vaginal colporrhaphy, possible total abdominal hysterectomy with bilateral salpingo-oophorectomy due to 2nd degree uterine prolapse, 3rd degree cystocele and 2nd degree rectocele along with pelvic pain. She has tried a pessary but it is uncomfortable for her. She declines urology consult as she states she doesn't want a sling. Her symptoms began after lifting heavy furniture. She complains of frequent urinary tract infections, occasional dribbling after urination, and pelvic pain. She would like definitive surgical treatment to control this problem. OB Hx: . History of 2 vaginal deliveries. Inside Sales Director Hx: No history of STDs. Social Hx: . Reitred. Review of Systems Constitutional: Denies chills, Denies fever Eyes: denies blurred vision, denies pain Ears, nose, mouth and throat: Denies headache, Denies sore throat Cardiovascular: Denies chest pain, Denies shortness of breath Respiratory: Denies cough Gastrointestinal: Denies abdominal pain, Denies diarrhea, Denies nausea, Denies vomiting Genitourinary: Reports prolapse symptoms, Reports urgency, Reports urinary frequency Menstruation: Reports postmenopausal Musculoskeletal: Denies myalgias Integumentary: Denies pruritus, Denies rash Neurological: Denies numbness, Denies weakness Psychiatric: Denies anxiety, Denies depression Endocrine: Reports flushing, Denies fatigue, Denies weight change Past Medical History Past Medical History: Hypertension, Thyroid Disorder History of Any Multi-Drug Resistant Organisms: None Reported Past Surgical History: Orthopedic Surgery, Tubal Ligation Additional Past Surgical History / Comment(s): Rt thyroidectomy, RT broken ankle requiring surgery, COLONOSCOPY/EGD; D&C Past Anesthesia/Blood Transfusion Reactions: No Reported Reaction Past Psychological History: No Psychological Hx Reported Smoking Status: Never smoker Past Alcohol Use History: None Reported Past Drug Use History: None Reported - Past Family History Mother Family Medical History: Cancer (Lung) Medications and Allergies Home Medications Medication Instructions Recorded Confirmed Type amLODIPine BESYLATE [Norvasc] 5 mg PO QAM 09/21/14 12/13/22 History Aspirin [Adult Low Dose Aspirin EC] 162 mg PO HS 12/16/15 12/13/22 History Biotin 5 mg PO QAM 12/16/15 12/13/22 History Cholecalciferol [Vitamin D3] 2,000 unit PO QAM 12/16/15 12/13/22 History L.acidoph,Paracasei, B.lactis 1 each PO QAM 12/16/15 12/13/22 History [Probiotic] Multivitamins, Thera [Multivitamin] 1 tab PO DAILY 12/16/15 12/13/22 History [place]-3 Fatty Acids/Fish Oil [Fish 1 each PO QAM 12/16/15 12/13/22 History Oil 1,000 mg Softgel] Vitamin B Complex 1 each PO QAM 12/16/15 12/13/22 History Thyroid,Pork [Labor Relations Consultant Thyroid 120] 120 mg PO DAILY 12/13/22 12/13/22 History Thyroid,Pork [Labor Relations Consultant Thyroid] 15 mg PO DAILY 12/13/22 12/13/22 History Allergies Allergy/AdvReac Type Severity Reaction Status Date / Time Sulfa (Sulfonamide Allergy Rash/Hives Verified 12/18/22 06:19 Antibiotics) Exam Osteopathic Statement: *. No significant issues noted on an osteopathic structural exam other than those noted in the History and Physical/Consult. HEENT: within normal limits Heart: regular rate and rhythm Lungs: clear to auscultation bilaterally Abdomen: soft, non-tender Pelvic exam: uterus with 2nd degree prolapse, anteverted, non-tender, grade 3 cystocele and grade 2 rectocele Extremities: neg. Kirit's Results Pelvic US showed uterus 5.9 x 3.5 x 5 cm, with multiple small fibroids, largest 1.3 cm, endometrium 0.3 cm, neither ovary visualized. Assessment and Plan (1) Cystocele and rectocele with incomplete uterovaginal prolapse Current Visit: No Status: Acute Code(s): N81.2 - INCOMPLETE UTEROVAGINAL PROLAPSE SNOMED Code(s): 328690148 Plan: Proceed with total vaginal hysterectomy with anterior and posterior vaginal colporrhaphy, possible total abdominal hysterectomy with bilateral salpingo- oophorectomy. I have discussed the risks, benefits, and alternative therapies for the above- mentioned procedure and for both sedation/anesthesia as well as necessary blood products administration, if indicated, as they pertain to this patient. The patient has indicated her understanding and acceptance of the risks and procedures discussed.
[2022-12-18] MEDS ORDERED: LACTATED RINGERS 1,000 ML IV SCH (06:10)
[2022-12-18] MEDS ORDERED: DEXAMETHASONE SOD PHOSPHATE 4 MG/ML 1 ML VIAL IV ONE (06:10)
[2022-12-18] MEDS ORDERED: LIDOCAINE 1% (10MG/ML) FOR IV START INTRADERMA PRN (06:10)
[2022-12-18] MEDS ORDERED: ONDANSETRON 4 MG/2 ML VIAL IVP ONE (06:10)
[2022-12-18] MEDS ORDERED: METOCLOPRAMIDE 5 MG/ML 2 ML VIAL IVP PRN ×2 (07:00→09:56)
[2022-12-18] MEDS ORDERED: MIDAZOLAM 2 MG/2 ML VIAL IVP ONE (07:01)
[2022-12-18] MEDS ORDERED: PROPOFOL 10 MG/ML 20 ML VIAL IV ONE (07:23)
[2022-12-18] MEDS ORDERED: ACETAMINOPHEN IV (For NPO) 1,000 MG/100 ML VIAL ONE (07:23)
[2022-12-18] MEDS ORDERED: LIDOCAINE 2% INJ 20 MG/ML (2 ML VIAL) ONE (07:23)
[2022-12-18] MEDS ORDERED: SUCCINYLCHOLINE CHLORIDE 200 MG/10 ML VIAL IV ONE (07:23)
[2022-12-18] MEDS ORDERED: fentaNYL (PF) 50 MCG/ML 2 ML AMP ONE (07:23)
[2022-12-18] MEDS ORDERED: hydrALAZINE HCL 20 MG/ML 1 ML VIAL ONE (07:23)
[2022-12-18] MEDS ORDERED: EPINEPHrine 1 MG in SODIUM CHLORIDE 0.9% 150 ML IV ONE (07:53)
[2022-12-18] MEDS ORDERED: LACTATED RINGERS 1,000 ML IV ONE (08:39)
[2022-12-18] MEDS ORDERED: BACITRACIN ZINC 500 UNIT/GM OINT 28.4 GM TUBE TOPICAL ONE (08:44)
[2022-12-18] MEDS ORDERED: THYROID PORK 15 MG PO SCH (09:00)
--- NOTE | 2022-12-18 09:05 | P.OP ---
Date of Procedure: 12/18/22 Preoperative Diagnosis: Uterine prolapse with cystocele and rectocele Pelvic pain Postoperative Diagnosis: Same Procedure(s) Performed: Total vaginal hysterectomy with anterior and posterior vaginal colporrhaphy Anesthesia: DELMIS Surgeon: Kristie Alejandra Relay Shop Supervisor #1: Silver Fernandez Estimated Blood Loss (ml): 30 Pathology: other (Uterus was cervix, portions of vaginal mucosa) Condition: stable Disposition: floor Indications for Procedure: This is a 67 y.o. female, 2, para 2, who presents for total vaginal hysterectomy with anterior and posterior vaginal colporrhaphy, possible total abdominal hysterectomy with bilateral salpingo-oophorectomy due to 2nd degree uterine prolapse, 3rd degree cystocele and 2nd degree rectocele along with pelvic pain. She has tried a pessary but it is uncomfortable for her. She declines urology consult as she states she doesn't want a sling. Her symptoms began after lifting heavy furniture. She complains of frequent urinary tract infections, occasional dribbling after urination, and pelvic pain. She would like definitive surgical treatment to control this problem. Operative Findings: Grade 2 prolapse is noted along with grade 2 cystocele and rectocele. Grade 2 enterocele is also noted. Neither ovary was visualized. Description of Procedure: The patient is taken the operating room where she is placed in the dorsal lithotomy position. She is prepped and draped in the normal sterile fashion. Next a weighted speculum was placed in the patient's vagina and a right angle retractor was used to visualize the cervix. The anterior lip of the cervix is grasped with a single-tooth tenaculum. Next the cervix was circumferentially injected with one amp of epinephrine to 150 mL of normal saline. Next the cervix was circumscribed with a scalpel. The vaginal mucosa was pushed away from the cervix with a sponge. Next the uterosacral ligaments are clamped on either side with a Ramon clamp, cut with Borges scissors, and then sutured with 0 Vicryl suture in a Ramon transfixion stitch and then held on either side with a straight hemostat. Next the cardinal ligaments were clamped on either side with Ramon clamps, cut with Borges scissors, and then sutured with 0 Vicryl suture in Ramon transfixion stitches and cut. Next the vesicouterine peritoneum reflection is identified and entered sharply with Metzenbaum scissors. A right angle bladder retractor is then used to retract the bladder. The posterior and uterine reflection is also noted and entered sharply with Borges scissors. A longbilled weighted speculum was placed for retraction. The uterine arteries are clamped on either side with Ramon clamps, cut with Borges scissors, and then sutured with 0 Vicryl suture in Ramon transfixion stitches. The round ligament is also clamped on either side with a Ramon clamp, cut with Borges scissors, and sutured with 0 Vicryl suture in Ramon transfixion stitches. Next the uterine ovarian ligament and tube were clamped on either side with a Ramon clamp, cut with Borges scissors, and then sutured with 0 Vicryl suture in a [id number] stitch, flashed, and then free tied with another suture of 0 Vicryl suture. These pedicles were held with a straight Giulia for identification. The uterus is removed from the field. Excellent hemostasis is noted. Next the peritoneum is closed with 0 Vicryl suture in a pursestring fashion incorporating all the held ligaments. Again neither ovary was visualized prior to closing the vaginal cuff area. Next the uterine ovarian ligaments are tied together in the middle and cut. Next attention was turned to the cystocele repair. The edges of the vaginal mucosa are held with 2 Allis clamps. Next injection of the same epinephrine solution is injected underneath the mucosa upwards towards the urethra. Metzenbaum scissors were used to dissect underneath the vaginal mucosa and cut along the way up to just below the urethra. Sharp and blunt dissection are used to dissect the bladder away from the vaginal mucosa. Once the bladder is freed, the cystocele is reduced with 0 Vicryl suture in [id number] stitches on either side of the cystocele. Next the edges of the vaginal mucosa are trimmed with Metzenbaum scissors. Next the vaginal mucosa is sutured with 0 Vicryl suture in a running locked fashion incorporating the vaginal cuff. The uterosacral ligaments were also tied together in the midline prior to completely closing the vaginal cuff. Next attention was turned to the posterior repair. The introitus is grasped at the 4 and 8 o'clock position with an Allis clamp. Injection of the same epinephrine solution is injected underneath the vaginal mucosa upwards towards the vaginal cuff. A small drained with the subcu tissues removed with the scalpel between the 2 Allis clamps on the perineum and then Metzenbaum scissors are used to dissect underneath the vaginal mucosa upwards towards the vaginal cuff. The edges of the vaginal mucosa are held with Allis clamps. Next the rectocele is reduced away from the vaginal mucosa with sharp and blunt dissection. The rectocele was then reduced with 0 Vicryl suture in interrupted [id number] stitches. The edges of the vaginal mucosa were then trimmed with Metzenbaum scissors. The vaginal mucosa was sutured with 0 Vicryl suture in a running locked fashion up to the introitus and then brought underneath the skin in a running fashion to the apex of the incision on the perineum. This was then brought up to the skin in a subcuticular fashion and then tied just inside the vagina. Excellent hemostasis is noted. The Reyes catheter is inserted and clear urine is noted. Next the vagina is packed with one-inch iodoform gauze with bacitracin ointment. All sponge and needle counts are correct and the patient is then taken to recovery room in stable condition.
[2022-12-18] MEDS: HYDROmorphone 0.5 MG/0.5 ML SYRINGE IVP PRN ×3 (09:15→09:25)
[2022-12-18] MEDS ORDERED: ZOLPIDEM 5 MG TAB PO PRN (09:56)
[2022-12-18] MEDS ORDERED: diphenhydrAMINE 50 MG/ML 1 ML VIAL IVP PRN (09:56)
[2022-12-18] MEDS ORDERED: NALOXONE 0.4 MG/ML 1 ML VIAL IV PRN (09:56)
[2022-12-18] MEDS ORDERED: SIMETHICONE 80 MG CHEWABLE PO PRN (09:56)
[2022-12-18] MEDS ORDERED: ACETAMINOPHEN IV (For NPO) 1,000 MG in EMPTY BAG 1 BAG IVPB ONE (10:00)
[2022-12-18] MEDS ORDERED: HYDROmorphone PCA 10 MG/50 ML BAG IV PRN (10:15)
[2022-12-18] MEDS: LACTATED RINGERS 1,000 ML IV SCH (10:40)
[2022-12-18] MEDS: amLODIPine 5 MG TAB PO SCH (10:42)
[2022-12-18] MEDS: SENNOSIDES-DOCUSATE SODIUM 1 EACH TAB PO SCH (11:24)
[2022-12-18] MEDS: KETOROLAC 15 MG/ML 1 ML VIAL IVP PRN (17:47)
[2022-12-18] MEDS: ONDANSETRON 4 MG/2 ML VIAL IVP PRN (17:50)
[2022-12-19] MEDS: SENNOSIDES-DOCUSATE SODIUM 1 EACH TAB PO SCH ×3 (01:23→20:00)
[2022-12-19] MEDS: ONDANSETRON 4 MG/2 ML VIAL IVP PRN (02:46)
[2022-12-19] MEDS: KETOROLAC 15 MG/ML 1 ML VIAL IVP PRN (06:05)
[2022-12-19 07:41] LABS: Basophils % (A) 0 %; Eosinophils % (A) 0 %; HCT 35.2 % (34.0-46.0); HGB 11.3 gm/dL (11.4-16.0); Lymphocytes # (A) 1.1 k/uL (1.0-4.8); Lymphocytes % (A) 12 %; MCH 27.1 pg (25.0-35.0); MCHC 32.2 g/dL (31.0-37.0); MCV 84.2 fL (80.0-100.0); Mean Platelet Volume 7.7; Monocytes # (A) 0.4 k/uL (0-1.0); Monocytes % (A) 4 %; Neutrophils # (A) 7.7 k/uL (1.3-7.7); Neutrophils % (A) 83 %; Platelet Count 184 k/uL (150-450); RBC 4.18 m/uL (3.80-5.40); RDW 14.3 % (11.5-15.5); WBC 9.3 k/uL (3.8-10.6)
--- NOTE | 2022-12-19 07:49 | P.PN ---
Subjective Progress Note Date: 12/19/22 Principal diagnosis: Status post total vaginal hysterectomy with anterior and posterior vaginal repair postoperative day #1 Patient did okay through the night. She did complain of a sinus headache this morning. She did have some emesis this morning also. Pain has been fairly well-controlled on her abdomen. She has only used her pain pump a couple times. Bleeding has been minimal. She has not urinated yet. Objective - Vital Signs Vital signs: Vital Signs Temp 98.8 F 12/19/22 00:00 Pulse 93 12/19/22 04:00 Resp 16 12/19/22 04:00 BP 142/85 12/19/22 07:00 Pulse Ox 95 12/19/22 04:00 FiO2 Intake & Output 12/18/22 12/19/22 12/19/22 18:59 06:59 18:59 Intake Total 1351 Output Total 730 1150 200 Balance 621 -1150 -200 Weight 107 kg Intake: IV 1251 Oral 100 Output: Urine 700 800 200 Uretheral (Reyes) 700 Emesis 350 Estimated Blood Loss 30 Other: Voiding Method Indwelling Catheter - Constitutional General appearance: Present: no acute distress - Gastrointestinal General gastrointestinal: Present: normal bowel sounds - Genitourinary Genitourinary Comment(s): Autumn-pad shows scant serosanguineous discharge - Musculoskeletal Musculoskeletal Comment(s): Negative Homans bilaterally - Labs CBC & Chem 7: 12/19/22 06:50 Labs: Abnormal Lab Results - Last 24 Hours (Table) 12/19/22 Range/Units 06:50 Hgb 11.3 L (11.4-16.0) gm/dL Assessment and Plan Assessment: Status post total vaginal hysterectomy with anterior and posterior vaginal repair postoperative day #1 (1) Cystocele and rectocele with incomplete uterovaginal prolapse Current Visit: No Status: Acute Code(s): N81.2 - INCOMPLETE UTEROVAGINAL PROLAPSE SNOMED Code(s): 209373248 Plan: We'll give is next for her sinus headache this morning. Will switch to oral pain medications today. Patient is encouraged to ambulate. Will work on bladder training today.
[2022-12-19] MEDS: amLODIPine 5 MG TAB PO SCH (09:50)
[2022-12-19] MEDS: guaiFENesin 600 MG TABLET.ER PO SCH ×2 (09:51→20:00)
[2022-12-19] MEDS: THYROID, PORK 30 MG TAB PO SCH (09:52)
[2022-12-19] MEDS: LACTATED RINGERS 1,000 ML IV SCH ×3 (09:58→17:22)
[2022-12-19] MEDS: ACETAMINOPHEN TAB 325 MG TAB PO PRN ×2 (11:18→17:28)
[2022-12-19] MEDS: IBUPROFEN 600 MG TAB PO PRN ×2 (13:11→20:00)
[2022-12-20] MEDS: LACTATED RINGERS 1,000 ML IV SCH (00:57)
[2022-12-20 02:07] VITALS: RESP 16
[2022-12-20 08:36] VITALS: BP 134/83; PULSE 86; TEMP 97.9
--- NOTE | 2022-12-20 08:52 | P.DS ---
Providers Date of admission: 12/19/22 08:39 Expected date of discharge: 12/20/22 Attending physician: Kristie Alejandra Primary care physician: True Zuniga - Discharge Diagnosis(es) (1) Cystocele and rectocele with incomplete uterovaginal prolapse Current Visit: No Status: Acute Hospital Course: This is a 67-year-old female who underwent a total vaginal hysterectomy with anterior and posterior vaginal colporrhaphy on 12/18/2022. Postoperatively she has done fairly well. She does complain of a sinus headache that she usually takes Mucinex for at home. She has been given this here but still does have a sinus headache. She is passing flatus and bowel movement. Bleeding has been minimal. She is urinating without difficulty. Vital signs are stable. Abdomen is soft with positive bowel sounds 4. Autumn-pad shows scant serosanguineous discharge. Extremities show negative Homans. Impression is status post total vaginal hysterectomy with anterior and posterior vaginal colporrhaphy postoperative day #2. Plan is to discharge home today. Routine postoperative instructions are given. She is advised follow-up in the office in approximately 1 week for a postoperative check. She will be given a prescription for ibuprofen. She is advised to call the office if she has any further questions or concerns prior to her appointment time. She is instructed no heavy lifting. No intercourse for 6 weeks. Procedures: Total vaginal hysterectomy with anterior and posterior vaginal colporrhaphy on 12/18/2022 Patient Condition at Discharge: Stable Plan - Discharge Summary Discharge Rx Participant: No New Discharge Prescriptions: New Ibuprofen [Motrin] 600 mg PO Q6HR PRN #60 tab PRN Reason: Mild Discomfort Continue amLODIPine BESYLATE [Norvasc] 5 mg PO QAM Multivitamins, Thera [Multivitamin (formulary)] 1 tab PO DAILY L.acidoph,Paracasei, B.lactis [Probiotic] 1 each PO QAM Biotin 5 mg PO QAM Vitamin B Complex 1 each PO QAM Cholecalciferol [Vitamin D3 (25 Mcg = 1000 Iu)] 2,000 unit PO QAM Aspirin [Adult Low Dose Aspirin EC] 162 mg PO HS [place]-3 Fatty Acids/Fish Oil [Fish Oil 1,000 mg Softgel] 1 each PO QAM Thyroid,Pork [Hide And Skin Fleshing Machine Operator Thyroid] 120 mg PO DAILY Thyroid,Pork [Hide And Skin Fleshing Machine Operator Thyroid] 15 mg PO DAILY Discharge Medication List amLODIPine BESYLATE [Norvasc] 5 mg PO QAM 09/21/14 [History] Aspirin [Adult Low Dose Aspirin EC] 162 mg PO HS 12/16/15 [History] Biotin 5 mg PO QAM 12/16/15 [History] Cholecalciferol [Vitamin D3 (25 Mcg = 1000 Iu)] 2,000 unit PO QAM 12/16/15 [History] L.acidoph,Paracasei, B.lactis [Probiotic] 1 each PO QAM 12/16/15 [History] Multivitamins, Thera [Multivitamin (formulary)] 1 tab PO DAILY 12/16/15 [History] [place]-3 Fatty Acids/Fish Oil [Fish Oil 1,000 mg Softgel] 1 each PO QAM 12/16/15 [History] Vitamin B Complex 1 each PO QAM 12/16/15 [History] Thyroid,Pork [Hide And Skin Fleshing Machine Operator Thyroid] 15 mg PO DAILY 12/13/22 [History] Thyroid,Pork [Hide And Skin Fleshing Machine Operator Thyroid] 120 mg PO DAILY 12/13/22 [History] Ibuprofen [Motrin] 600 mg PO Q6HR PRN #60 tab 12/20/22 [Rx] Follow up Appointment(s)/Referral(s): Kristie Alejandra DO [Doctor of Osteopathic Medicine] - 1 Week Activity/Diet/Wound Care/Special Instructions: Activity as tolerated. Diet as tolerated. May shower, but no tub baths for 1 week. No intercourse for 6 weeks. No heavy lifting. Discharge Disposition: HOME SELF-CARE
[2022-12-20] MEDS: guaiFENesin 600 MG TABLET.ER PO SCH (09:30)
[2022-12-20] MEDS: amLODIPine 5 MG TAB PO SCH (09:30)
[2022-12-20] MEDS: THYROID, PORK 30 MG TAB PO SCH (09:31)
== END 2022-12-20 09:40 | disposition home or self-care (01) ==
LOC: OR 05:34 → EDSTATUS 07:30 → 4FBP 08:56 → OR 12-19 08:39 → 4FBP 12-19 08:39
PROVIDERS: ADMIT Obstetrics & Gynecology; ATTEND Obstetrics & Gynecology
DX: N81.2 Incomplete uterovaginal prolapse (principal); D25.1 Intramural leiomyoma of uterus; N80.03 Adenomyosis of the uterus; N80.00 Endometriosis of the uterus, unspecified; R51.9 Headache, unspecified; I10 Essential (primary) hypertension; E89.0 Postprocedural hypothyroidism; Z79.82 Long term (current) use of aspirin; Z79.890 Hormone replacement therapy; Z79.899 Other long term (current) drug therapy; Z88.2 Allergy status to sulfonamides; Z87.440 Personal history of urinary (tract) infections; Z98.51 Tubal ligation status; Z98.890 Other specified postprocedural states; Z80.1 Family history of malignant neoplasm of trachea, bronchus and lung
CPT/HCPCS: 58260; 57260; 86900; 86901; 85025; 86850; 88307; G0378 ×2; J2250; J0171; J0330; J0360; J1200; J1100; J2765; J0690; J2405 ×2; J3010; J0131; J1885 ×2; J2704; J1170 ×2; J2001

== ENCOUNTER → 2023-04-04 | Outpatient (CLI) | payer MEDICARE, BC ==
--- NOTE | 2023-04-05 08:32 | MM ---
Reason for Exam: Screening (asymptomatic). Last screening mammogram was performed 12 month(s) ago. Patient History: Menarche at age 14. First Full-Term at age 19. Postmenopausal. Risk Values: Tiffanie 5 year model risk: 1.7%. NCI Lifetime model risk: 5.7%. Prior Study Comparison: 03/17/2020 Bilateral Screening Mammogram, [facility]. 03/21/2021 Bilateral Screening Mammogram, [facility]. 03/31/2022 Bilateral MG 3D screening mammo w/cad, [facility]. Tissue Density: The breast tissue is almost entirely fat. Findings: Analyzed By CAD. There is no suspicious group of microcalcifications or new suspicious mass in either breast. Overall Assessment: Negative, BI-RAD 1 Management: Screening Mammogram of both breasts in [address] [facility] will attempt to contact patient to return for supplemental views and ultrasound if indicated. Patient should continue monthly self-breast exams. A clinical breast exam by your physician is recommended on an annual basis. This exam should not preclude additional follow-up of suspicious palpable abnormalities. Note on Tiffanie scores and lifetime risk: 1. A Tiffanie score greater than 3% is considered moderate risk. If this is the case, consider specialist referral to assess eligibility for a risk reducing agent. 2. If overall lifetime risk for the development of breast cancer is 20% or higher, the patient may qualify for future screening with alternating mammogram and breast MRI. Electronically signed and approved by: Singh Skinner DO
== END | disposition home or self-care (01) ==
LOC: RADMAMWWP 11:39
PROVIDERS: ATTEND Obstetrics & Gynecology
DX: Z12.31 Encounter for screening mammogram for malignant neoplasm of breast (principal); Z78.0 Asymptomatic menopausal state
CPT/HCPCS: 77063; 77067

== ENCOUNTER → 2023-05-30 | Outpatient (CLI) | payer MEDICARE, BC ==
[2023-05-30 15:10] LABS: Basophils # (A) 0.04 X 10*3/uL (0.00-0.10); Basophils % (A) 0.7 %; Eosinophils # (A) 0.07 X 10*3/uL (0.04-0.35); Eosinophils % (A) 1.2 %; HCT 43.6 % (37.2-46.3); HGB 13.7 d/dL (12.0-15.0); Immature Grans, Automated 0 %; Lymphocytes # (A) 2.12 X 10*3/uL (0.90-5.00); Lymphocytes % (A) 36.5 %; MCH 26.5 pg (27.0-32.0); MCHC 31.4 d/dL (32.0-37.0); MCV 84.3 FL (80.0-97.0); Mean Platelet Volume 10.7 FL (9.5-12.2); Monocytes # (A) 0.35 X 10*3/uL (0.20-1.00); NRBC Per 100 WBC 0 X 10*3/uL (0.00-0.01); Neutrophils # (A) 3.23 X 10*3/uL (1.80-7.70); Neutrophils % (A) 55.6 %; Platelet Count 235 X 10*3/uL (140-440); RBC 5.17 X 10*6/uL (4.10-5.20); RDW 14.5 % (11.5-14.5); WBC 5.81 X 10*3/uL (4.50-10.00)
[2023-05-30 15:50] LABS: ALT 16 U/L (8-44); AST 20 U/L (13-35); Albumin 4.4 d/dL (3.8-4.9); Albumin/Globulin Ratio 1.63 Ratio (1.60-3.17); Alkaline Phosphatase 148 U/L (41-126); Blood Urea Nitrogen 10.8 mg/dL (9.0-27.0); Carbon Dioxide 28.8 mmol/L (21.6-31.8); Chloride 106 mmol/L (96-109); Chol/HDL Ratio 4.44 Ratio; Creatine Kinase 106 U/L (26-186); Globulin 2.7 d/dL (1.6-3.3); Glucose 94 mg/dL (70-110); LDL Cholesterol,Calculated 141.3 mg/dL (0.0-131.0); Potassium 4.6 mmol/L (3.5-5.5); Sodium 143 mmol/L (135-145); T4, Free (Free Thyroxine) 1.41 ng/dL (0.80-1.80); Total Bilirubin 0.8 mg/dL (0.3-1.2); Total Protein 7.1 d/dL (6.2-8.2)
== END | disposition home or self-care (01) ==
LOC: LABWHC1 10:48
PROVIDERS: ATTEND Family Medicine
DX: I10 Essential (primary) hypertension (principal); E78.5 Hyperlipidemia, unspecified; E55.9 Vitamin D deficiency, unspecified; E03.9 Hypothyroidism, unspecified
CPT/HCPCS: 36415; 80053; 80061; 82306; 82550; 84439; 84443; 84481; 85025

== ENCOUNTER → 2023-08-14 | Outpatient (CLI) | payer MEDICARE, BC ==
--- NOTE | 2023-08-15 07:53 | BD ---
EXAMINATION TYPE: Axial Bone Density DATE OF EXAM: 08/14/2023 CLINICAL HISTORY: 67 years old Female. ICD-10 CODE: N95.1 MENOPAUSAL AND FEMALE CLIMACTERIC STATES Height: 64.5 Weight: 227.8 FRAX RISK QUESTIONS: Alcohol (3 or more units per day): no Family History (Parent hip fracture): no Glucocorticoids (More than 3mos): no History of Fracture in Adulthood: yes Secondary Osteoporosis: 1. Type 1 Diabetes: no 2. Hyperthyroidism: no 3. Menopause before 45: no 4. Malnutrition: no 5. Chronic liver disease: no Rheumatoid Arthritis: no Current Tobacco Use: no RISK FACTORS HISTORY OF: Hip Fracture (Right/Left): no Spine Fracture: no History of Wrist Fracture: no Surgery to Spine/Hip(right/left)/Wrist (right/left): no Family History of Osteoporosis: no Active: yes Diet low in dairy products/other sources of calcium: yes Postmenopausal woman: yes Take estrogen and/or progesterone medications: no Lost more than 2 inches in height since high school: no Frequent falls: no Poor Health: no Hyperparathyroidism: no Adrenal Insufficiency: no MEDICATIONS: Prednisone or other steroids: no Thyroid Medications: Thyroid Armor How Long: past 20 years Osteoporosis Medications: no Additional Medications: BP Meds, Multi Vit, Vit D, [place] 3, Biotin, Additional History: EXAM MEASUREMENTS: Bone mineral densitometry was performed using the E96 System. Bone mineral density as measured about the Lumbar spine is: ----- L1-L4(G/cm2): 1.411 T Score Values are as follows: ----- L1: 0.0 ----- L2: 1.0 ----- L3: 3.1 ----- L4: 3.1 ----- L1-L4: 1.9 Z Score Values are as follows: ----- L1: 0.4 ----- L2: 1.4 ----- L3: 3.5 ----- L4: 3.6 ----- L1-L4: 2.4 Bone mineral density has: decreased -3.6 % since study of: 03/08/2018 Bone mineral density about the L hip (g/cm2): 0.989 T Score values are as follows: -----L Neck: -0.4 -----L Total: -0.1 Z Score values are as follows: -----L Neck: 0.4 -----L Total: 0.3 Bone mineral density has: decreased -4.2 % since study of: 03/08/2018 FRAX%s: The graph provided illustrates a 11.0% chance for a major osteoporotic fx and a 0.5% chance f or the hips probability for fx in 10 years time. IMPRESSION: Normal (Values between +1 and -1 indicate normal bone mass). Consider repeating this study in 5 year s or sooner if there is some new clinical indication. NOTE: T-SCORE=SD OF THE YOUNG ADULT MEAN.
== END | disposition home or self-care (01) ==
LOC: RADBDWWP 14:02
PROVIDERS: ATTEND Obstetrics & Gynecology
DX: N95.1 Menopausal and female climacteric states (principal)
CPT/HCPCS: 77080

== ENCOUNTER 2023-09-27 07:14 | Day surgery (SDC) | payer BC, MEDICARE ==
[2023-09-25 11:52] VITALS: BMI 37.5
--- NOTE | 2023-09-27 07:19 | P.GSHP ---
History of Present Illness H&P Date: 09/27/23 CHIEF COMPLAINT: GERD and colon screen HISTORY OF PRESENT ILLNESS: The patient is a 67-year-old female who presents with gastroesophageal reflux disease and need for colon screen. Upper and lower endoscopy were offered for further evaluation and management. PAST MEDICAL HISTORY: Please see list. PAST SURGICAL HISTORY: Please see list. MEDICATIONS: Please see list. ALLERGIES: Please see list. SOCIAL HISTORY: No illicit drug use FAMILY HISTORY: No reports of Crohn disease or ulcerative colitis. REVIEW OF ORGAN SYSTEMS: CONSTITUTIONAL: No reports of fevers or chills. GI: Denies any blood in stools or constipation. PHYSICAL EXAM: VITAL SIGNS: Stable GENERAL: Well-developed pleasant in no acute distress. HEENT: No scleral icterus. Extraocular movements grossly intact. Moist buccal mucosa. NECK: Supple without lymphadenopathy. CHEST: Unlabored respirations. Equal bilateral excursions. CARDIOVASCULAR: Regular rate and rhythm. Distal 2+ pulses. ABDOMEN: Soft, nondistended. MUSCULOSKELETAL: No clubbing, cyanosis, or edema. ASSESSMENT: 1. Gastroesophageal reflux disease 2. Colon screen. PLAN: 1. Recommend proceeding with an upper and lower endoscopy Past Medical History Past Medical History: Hypertension, Thyroid Disorder History of Any Multi-Drug Resistant Organisms: None Reported Past Surgical History: Orthopedic Surgery, Tubal Ligation Additional Past Surgical History / Comment(s): Rt thyroidectomy, RT broken ankle requiring surgery Past Anesthesia/Blood Transfusion Reactions: Motion Sickness Smoking Status: Never smoker - Past Family History Mother Family Medical History: Cancer Additional Family Medical History / Comment(s): mother of lung cancer. Sister(s) Family Medical History: Cancer Additional Family Medical History / Comment(s): multiple myaloma Medications and Allergies Home Medications Medication Instructions Recorded Confirmed Type amLODIPine BESYLATE [Norvasc] 5 mg PO QAM 09/21/14 09/25/23 History Aspirin [Adult Low Dose Aspirin EC] 162 mg PO HS 12/16/15 09/25/23 History Biotin 5 mg PO QAM 12/16/15 09/25/23 History Cholecalciferol [Vitamin D3 (25 2,000 unit PO QAM 12/16/15 09/25/23 History Mcg = 1000 Iu)] L.acidoph,Paracasei, B.lactis 1 each PO QAM 12/16/15 09/25/23 History [Probiotic] Multivitamins, Thera [Multivitamin 1 tab PO QAM 12/16/15 09/25/23 History (formulary)] [place]-3 Fatty Acids/Fish Oil [Fish 1 each PO QAM 12/16/15 09/25/23 History Oil 1,000 mg Softgel] Vitamin B Complex 1 each PO QAM 12/16/15 09/25/23 History Thyroid,Pork [Drying Equipment Operator Thyroid] 15 mg PO QAM 12/13/22 09/25/23 History Thyroid,Pork [Drying Equipment Operator Thyroid] 120 mg PO QAM 12/13/22 09/25/23 History Allergies Allergy/AdvReac Type Severity Reaction Status Date / Time Sulfa (Sulfonamide Allergy Rash/Hives Verified 09/25/23 11:24 Antibiotics)
[2023-09-27] MEDS ORDERED: LACTATED RINGERS 1,000 ML IV SCH (07:34)
[2023-09-27] MEDS ORDERED: LIDOCAINE 1% (10MG/ML) FOR IV START INTRADERMA PRN (07:34)
[2023-09-27 08:32] VITALS: TEMP 96.9
[2023-09-27] MEDS ORDERED: LIDOCAINE 2% (PF) 20 MG/ML 5 ML VIAL ONE (08:41)
[2023-09-27] MEDS ORDERED: PROPOFOL 10 MG/ML 20 ML VIAL IV ONE (08:41)
--- NOTE | 2023-09-27 09:17 | P.PCN ---
Date of Procedure: 09/27/23 Description of Procedure: PREOPERATIVE DIAGNOSIS: Gastroesophageal reflux disease. Morbid obesity. POSTOPERATIVE DIAGNOSIS: Gastroesophageal reflux disease. Morbid obesity. Gastritis. Diaphragmatic hiatal hernia OPERATION: Esophagogastroduodenoscopy with biopsies along the esophagus, antrum and duodenum SURGEON: Vicky Hinson MD ANESTHESIA: MAC. INDICATIONS: The patient is a 67-year-old female who presents with reflux disease. Benefits and risks of the procedure were described. Informed consent was obtained. DESCRIPTION: The patient was brought into the endoscopy suite and laid in the left lateral decubitus position. An Olympus gastroscope was passed along the posterior oropharynx down to the distal esophagus where the squamocolumnar junction was encountered at 37 cm from the incisors. The stomach was entered and no bile reflux was found. Additional findings are listed below. Biopsies with cold forceps were obtained of the antrum. The first through third portion of the duodenum was examined. Retroflexion of the scope confirmed Hill grade 3 lower esophageal valve. The squamocolumnar junction demonstrated LA grade B erosive esophagitis. The stomach was desufflated. The patient tolerated the procedure well. FINDINGS: Squamocolumnar junction 36 cm from the incisors. Diaphragmatic hiatus at 38 cm. Diaphragmatic hiatal hernia 2 cm Hill grade 3 lower esophageal valve. LA grade B erosive esophagitis. Biopsies obtained Biopsies obtained of the duodenum. Chronic gastritis with biopsies obtained. RECOMMENDATIONS: Upper endoscopy as needed.
[2023-09-27 09:24] VITALS: RESP 16
--- NOTE | 2023-09-27 09:24 | P.PCN ---
Date of Procedure: 09/27/23 Description of Procedure: PREOPERATIVE DIAGNOSIS: Colonoscopy screening. High-risk colon screening Family history colon cancer POSTOPERATIVE DIAGNOSIS: Colonoscopy screening. Diverticulosis, scattered. OPERATION: Colonoscopy to the cecum, ileocecal valve and appendiceal orifice. SURGEON: Vicky Hinson MD. ANESTHESIA: MAC. INDICATIONS: The patient is a 67-year-old female who presents for colonoscopy screening. Benefits and risks were described and informed consent was obtained. DESCRIPTION OF PROCEDURE: The patient had undergone Suflave prep. The patient had been brought into the operating room and laid in the left lateral decubitus position. After adequate intravenous sedation, the rectum was examined with 2% lidocaine jelly. External hemorrhoids were encountered. The rectal tone was within normal limits. No lesions were palpated in the rectal vault. An Olympus colonoscope was advanced until the cecum, ileocecal valve and appendiceal orifice were clearly viewed. The prep was excellent. Scattered diverticulosis was encountered. No colonic polyps were found. No evidence of focal colitis was found. Retroflexion of the scope demonstrated grade 3 internal hemorrhoids without active bleeding or inflammation. The colon was desufflated. The patient had tolerated the procedure well. Withdrawal time was over 6 minutes. FINDINGS: Aronchick preparation quality scale 1 (1-5) Internal hemorrhoids, grade 3 External prolapsed hemorrhoids, grade 3 No arteriovenous malformations. No adenomatous polyps. Moderate diverticulosis No focal colitis. RECOMMENDATIONS: Lower endoscopy in 5 years, 2027 Plan - Discharge Summary Discharge Rx Participant: No New Discharge Prescriptions: Continue amLODIPine BESYLATE [Norvasc] 5 mg PO QAM Multivitamins, Thera [Multivitamin (formulary)] 1 tab PO QAM L.acidoph,Paracasei, B.lactis [Probiotic] 1 each PO QAM Biotin 5 mg PO QAM Vitamin B Complex 1 each PO QAM Cholecalciferol [Vitamin D3 (25 Mcg = 1000 Iu)] 2,000 unit PO QAM Aspirin [Adult Low Dose Aspirin EC] 162 mg PO HS [place]-3 Fatty Acids/Fish Oil [Fish Oil 1,000 mg Softgel] 1 each PO QAM Thyroid,Pork [Tanning Solution Maker Thyroid] 120 mg PO QAM Thyroid,Pork [Tanning Solution Maker Thyroid] 15 mg PO QAM Discharge Medication List amLODIPine BESYLATE [Norvasc] 5 mg PO QAM 12/22/14 [History] Aspirin [Adult Low Dose Aspirin EC] 162 mg PO HS 12/16/15 [History] Biotin 5 mg PO QAM 12/16/15 [History] Cholecalciferol [Vitamin D3 (25 Mcg = 1000 Iu)] 2,000 unit PO QAM 12/16/15 [History] L.acidoph,Paracasei, B.lactis [Probiotic] 1 each PO QAM 12/16/15 [History] Multivitamins, Thera [Multivitamin (formulary)] 1 tab PO QAM 12/16/15 [History] [place]-3 Fatty Acids/Fish Oil [Fish Oil 1,000 mg Softgel] 1 each PO QAM 12/16/15 [History] Vitamin B Complex 1 each PO QAM 12/16/15 [History] Thyroid,Pork [Tanning Solution Maker Thyroid] 15 mg PO QAM 12/13/22 [History] Thyroid,Pork [Tanning Solution Maker Thyroid] 120 mg PO QAM 12/13/22 [History] Follow up Appointment(s)/Referral(s): Vicky Hinson MD [STAFF PHYSICIAN] - 10/09/23 11:45 am Patient Instructions/Handouts: *Surgery [facility] - (Anesthesia) Discharge Instructions Outpatient Surgery, Diverticulosis Diet (GEN), Diverticulosis (GEN), Hiatal Hernia (DC) Activity/Diet/Wound Care/Special Instructions: Repeat colonoscopy 5 years, 2027 Discharge Disposition: HOME SELF-CARE
[2023-09-27 09:48] VITALS: BP 134/63; PULSE 73
== END 2023-09-27 09:52 | disposition home or self-care (01) ==
LOC: ORWHC2ENDO 07:14
PROVIDERS: ATTEND Surgery Plastic and Reconstructive Surgery
DX: Z12.11 Encounter for screening for malignant neoplasm of colon (principal); D72.820 Lymphocytosis (symptomatic); K31.89 Other diseases of stomach and duodenum; K21.00 Gastro-esophageal reflux disease with esophagitis, without bleeding; K29.70 Gastritis, unspecified, without bleeding; K64.4 Residual hemorrhoidal skin tags; K57.30 Diverticulosis of large intestine without perforation or abscess without bleeding; K64.2 Third degree hemorrhoids; K90.0 Celiac disease; K44.9 Diaphragmatic hernia without obstruction or gangrene; E66.01 Morbid (severe) obesity due to excess calories; Z80.0 Family history of malignant neoplasm of digestive organs; I10 Essential (primary) hypertension; E03.9 Hypothyroidism, unspecified; Z80.1 Family history of malignant neoplasm of trachea, bronchus and lung; Z79.82 Long term (current) use of aspirin; Z79.890 Hormone replacement therapy; Z79.899 Other long term (current) drug therapy; Z88.2 Allergy status to sulfonamides; Z98.890 Other specified postprocedural states
CPT/HCPCS: 88305; 43239; J2704; J2001; G0105

== ENCOUNTER → 2023-12-10 | Outpatient (CLI) | payer MEDICARE ==
[2023-12-10 18:47] LABS: Basophils # (A) 0.05 X 10*3/uL (0.00-0.10); Basophils % (A) 0.8 %; Eosinophils % (A) 1.6 %; HCT 41.4 % (37.2-46.3); Lymphocytes # (A) 2.41 X 10*3/uL (0.90-5.00); Lymphocytes % (A) 38.6 %; MCH 26.5 pg (27.0-32.0); MCHC 31.4 g/dL (32.0-37.0); MCV 84.3 FL (80.0-97.0); Monocytes # (A) 0.44 X 10*3/uL (0.20-1.00); Monocytes % (A) 7.1 %; NRBC Per 100 WBC 0 X 10*3/uL (0.00-0.01); Neutrophils # (A) 3.23 X 10*3/uL (1.80-7.70); Neutrophils % (A) 51.7 %; Platelet Count 229 X 10*3/uL (140-440); RBC 4.91 X 10*6/uL (4.10-5.20); RDW 14.5 % (11.5-14.5); WBC 6.24 X 10*3/uL (4.50-10.00)
[2023-12-10 19:39] LABS: ALT 18 U/L (8-44); AST 16 U/L (13-35); Albumin 4.2 g/dL (3.8-4.9); Albumin/Globulin Ratio 1.56 Ratio (1.60-3.17); Alkaline Phosphatase 160 U/L (41-126); BUN/Creat Ratio 14.12 Ratio (12.00-20.00); Blood Urea Nitrogen 11.3 mg/dL (9.0-27.0); Calcium 9.4 mg/dL (8.7-10.3); Carbon Dioxide 27.4 mmol/L (21.6-31.8); Chloride 105 mmol/L (96-109); Chol/HDL Ratio 4.54 Ratio; Globulin 2.7 g/dL (1.6-3.3); Glucose 94 mg/dL (70-110); Potassium 3.8 mmol/L (3.5-5.5); Sodium 143 mmol/L (135-145); T4, Free (Free Thyroxine) 1.12 ng/dL (0.80-1.80); Total Bilirubin 0.7 mg/dL (0.3-1.2); Total Protein 6.9 g/dL (6.2-8.2)
== END | disposition home or self-care (01) ==
LOC: LABWHC1 09:29
PROVIDERS: ATTEND Family Medicine
DX: I10 Essential (primary) hypertension (principal); E03.9 Hypothyroidism, unspecified; E55.9 Vitamin D deficiency, unspecified; E78.5 Hyperlipidemia, unspecified; Z79.899 Other long term (current) drug therapy
CPT/HCPCS: 36415; 80053; 80061; 82306; 83036; 84439; 84443; 84481; 85025

== ENCOUNTER → 2023-12-28 | Outpatient (CLI) | payer MEDICARE, BC ==
--- NOTE | 2023-12-28 16:50 | US ---
EXAMINATION TYPE: US carotid duplex BILAT DATE OF EXAM: 12/28/2023 COMPARISON: US 12/08/2022 US 07/04/2021 CLINICAL INDICATION: Female, 68 years old with history of I 68.29; Occlusion and stenosis of unspecif ied carotid artery; Patient denies any signs or symptoms or changes from prior TECHNIQUE: Carotid duplex ultrasound examination. Indirect Doppler criteria was utilized. FINDINGS: EXAM MEASUREMENTS: RIGHT: Peak Systolic Velocity (PSV) cm/sec ----- Right CCA: 56 ----- Right ICA: 122 ----- Right ECA: 56 ICA/CCA ratio: 2.2 RIGHT: End Diastole cm/sec ----- Right CCA: 18 ----- Right ICA: 58 ----- Right ECA: 12 LEFT: Peak Systolic Velocity (PSV) cm/sec ----- Left CCA: 50 ----- Left ICA: 76 ----- Left ECA: 48 ICA/CCA ratio: 1.5 LEFT: End Diastole cm/sec ----- Left CCA: 17 ----- Left ICA: 29 ----- Left ECA: 9 VERTEBRALS (direction of flow): Right Vertebral: Antegrade Left Vertebral: Antegrade Rhythm: Normal CHAIN BUILDER NOTES: No plaque, or elevated velocities noted. Some mild intimal thickening may be present on the right. IMPRESSION: 1. No significant flow-limiting stenosis based on velocities. Criteria for Assigning % of Stenosis / Diameter reduction (Estimation based on the indirect measurements of the internal carotid artery velocities (ICA PSV). 1. Normal (no stenosis)=ICA PSV < 125 cm/s: ratio < 2.0: ICA EDV<40 cm/s. 2. Less than 50% stenosis=ICA PSV < 125 cm/s: ratio < 2.0: ICA EDV<40 cm/s. 3. 50 to 69% stenosis=ICA PSV of 125 to 230 cm/s: ration 2.0 ? 4.0: ICA EDV 40-100 cm/s. 4. Greater than 70% stenosis to near occlusion= ICA PSV > 230 cm/s: ratio > 4.0: ICA EDV > 100 cm/s. 5. Near occlusion= ICA PSV velocities may be low or undetectable: variable ratio and ICA EDV. 6. Total occlusion=unable to detect flow.
== END | disposition home or self-care (01) ==
LOC: RADUSWWP 15:09
PROVIDERS: ATTEND Family Medicine
DX: I65.23 Occlusion and stenosis of bilateral carotid arteries (principal)
CPT/HCPCS: 93880

== ENCOUNTER → 2024-04-08 | Outpatient (CLI) | payer MEDICARE ==
--- NOTE | 2024-04-16 19:39 | MM ---
Reason for Exam: Screening (asymptomatic). Last screening mammogram was performed 12 month(s) ago. Patient History: Menarche at age 14. First Full-Term at age 19. Hysterectomy at age 67. Postmenopausal. Risk Values: Tiffanie 5 year model risk: 1.7%. NCI Lifetime model risk: 5.5%. Prior Study Comparison: 03/21/2021 Bilateral Screening Mammogram, [facility]. 03/31/2022 Bilateral MG 3D screening mammo w/cad, [facility]. 04/04/2023 Bilateral MG 3D screening mammo w/cad, [facility]. Tissue Density: The breasts are almost entirely fatty. Findings: Analyzed By CAD. The pattern is symmetrical. No significant interval change. No suspicious groups of microcalcifications, spiculated or lobular masses, architectural distortion or other secondary signs of malignancy are mammographically apparent. Overall Assessment: Negative, BI-RAD 1 Management: Screening Mammogram of both breasts in 1 year. A negative mammogram report should not preclude additional follow up of suspicious palpable abnormalities. Patient should continue monthly self breast exam. A clinical breast exam by your physician is recommended on an annual basis and results should be correlated with mammographic findings. Note on Tiffanie scores and lifetime risk: 1. A Tiffanie score greater than 3% is considered moderate risk. If this is the case, consider specialist referral to assess eligibility for a risk reducing agent. 2. If overall lifetime risk for the development of breast cancer is 20% or higher, the patient may qualify for future screening with alternating mammogram and breast MRI. Electronically signed and approved by: Silvio Cooney D.O. Radiologis
== END | disposition home or self-care (01) ==
LOC: RADMAMWWP 07:38
PROVIDERS: ATTEND Family Medicine
DX: Z12.31 Encounter for screening mammogram for malignant neoplasm of breast (principal); Z78.0 Asymptomatic menopausal state
CPT/HCPCS: 77063; 77067

== ENCOUNTER → 2024-06-23 | Outpatient (CLI) | payer MEDICARE ==
[2024-06-23 15:00] LABS: Basophils # (A) 0.03 X 10*3/uL (0.00-0.10); Basophils % (A) 0.5 %; Eosinophils # (A) 0.12 X 10*3/uL (0.04-0.35); Eosinophils % (A) 1.9 %; HCT 42.1 % (37.2-46.3); HGB 13.1 g/dL (12.0-15.0); Lymphocytes # (A) 2.26 X 10*3/uL (0.90-5.00); MCH 26.5 pg (27.0-32.0); MCHC 31.1 g/dL (32.0-37.0); MCV 85.1 FL (80.0-97.0); Mean Platelet Volume 10.6 FL (9.5-12.2); Monocytes % (A) 6.4 %; NRBC Per 100 WBC 0 X 10*3/uL (0.00-0.01); Neutrophils # (A) 3.45 X 10*3/uL (1.80-7.70); Platelet Count 270 X 10*3/uL (140-440); RBC 4.95 X 10*6/uL (4.10-5.20); RDW 14.3 % (11.5-14.5); WBC 6.27 X 10*3/uL (4.50-10.00)
[2024-06-23 15:51] LABS: ALT 19 U/L (8-44); AST 20 U/L (13-35); Albumin 4.1 g/dL (3.8-4.9); Albumin/Globulin Ratio 1.46 Ratio (1.60-3.17); Alkaline Phosphatase 141 U/L (41-126); BUN/Creat Ratio 11.75 Ratio (12.00-20.00); Blood Urea Nitrogen 9.4 mg/dL (9.0-27.0); Calcium 9.8 mg/dL (8.7-10.3); Carbon Dioxide 26.7 mmol/L (21.6-31.8); Chloride 107 mmol/L (96-109); Globulin 2.8 g/dL (1.6-3.3); Glucose 101 mg/dL (70-110); LDL Cholesterol,Calculated 128.8 mg/dL (0.0-131.0); Potassium 4.1 mmol/L (3.5-5.5); Sodium 144 mmol/L (135-145); Total Bilirubin 0.5 mg/dL (0.3-1.2); Total Protein 6.9 g/dL (6.2-8.2)
[2024-06-23 15:52] LABS: T4, Free (Free Thyroxine) 1.22 ng/dL (0.80-1.80)
== END | disposition home or self-care (01) ==
LOC: LABWHC1 09:41
PROVIDERS: ATTEND Family Medicine
DX: E78.5 Hyperlipidemia, unspecified (principal); E03.9 Hypothyroidism, unspecified; I10 Essential (primary) hypertension; Z79.899 Other long term (current) drug therapy; E55.9 Vitamin D deficiency, unspecified; R68.89 Other general symptoms and signs
CPT/HCPCS: 36415; 80053; 80061; 82306; 84439; 84443; 85025

== ENCOUNTER → 2024-12-30 | Outpatient (CLI) | payer MEDICARE, BC ==
[2024-12-30 15:13] LABS: ALT 21 U/L (8-44); AST 24 U/L (13-35); Albumin 4.1 g/dL (3.8-4.9); Albumin/Globulin Ratio 1.32 Ratio (1.60-3.17); Alkaline Phosphatase 168 U/L (41-126); BUN/Creat Ratio 16.12 Ratio (12.00-20.00); Blood Urea Nitrogen 12.9 mg/dL (9.0-27.0); Calcium 9.6 mg/dL (8.7-10.3); Carbon Dioxide 27.5 mmol/L (21.6-31.8); Chloride 105 mmol/L (96-109); Chol/HDL Ratio 4.08 Ratio; Creatine Kinase 185 U/L (26-186); Globulin 3.1 g/dL (1.6-3.3); Glucose 97 mg/dL (70-110); LDL Cholesterol,Calculated 133.4 mg/dL (0.0-131.0); Potassium 4.4 mmol/L (3.5-5.5); Sodium 142 mmol/L (135-145); T4, Free (Free Thyroxine) 1.29 ng/dL (0.80-1.80); Total Bilirubin 0.6 mg/dL (0.3-1.2); Total Protein 7.2 g/dL (6.2-8.2)
[2024-12-30 15:50] LABS: HCT 41.9 % (37.2-46.3); HGB 12.9 g/dL (12.0-15.0); MCH 26.1 pg (27.0-32.0); MCHC 30.8 g/dL (32.0-37.0); MCV 84.6 FL (80.0-97.0); Mean Platelet Volume 10.6 FL (9.5-12.2); NRBC Per 100 WBC 0 X 10*3/uL (0.00-0.01); Platelet Count 257 X 10*3/uL (140-440); RBC 4.95 X 10*6/uL (4.10-5.20); RDW 14.7 % (11.5-14.5); WBC 6.38 X 10*3/uL (4.50-10.00)
[2024-12-30 15:51] LABS: Basophils # (A) 0.03 X 10*3/uL (0.00-0.10); Basophils % (A) 0.5 %; Eosinophils % (A) 1.6 %; Lymphocytes # (A) 2.63 X 10*3/uL (0.90-5.00); Lymphocytes % (A) 41.2 %; Monocytes # (A) 0.43 X 10*3/uL (0.20-1.00); Monocytes % (A) 6.7 %; Neutrophils # (A) 3.17 X 10*3/uL (1.80-7.70); Neutrophils % (A) 49.7 %
== END | disposition home or self-care (01) ==
LOC: LABWHC1 09:49
PROVIDERS: ATTEND Family Medicine
DX: I10 Essential (primary) hypertension (principal); E03.9 Hypothyroidism, unspecified; E78.5 Hyperlipidemia, unspecified; E55.9 Vitamin D deficiency, unspecified; R68.89 Other general symptoms and signs; Z79.899 Other long term (current) drug therapy
CPT/HCPCS: 36415; 80053; 80061; 82306; 82550; 83036; 84439; 84443; 84481; 85025

== ENCOUNTER → 2025-04-09 | Outpatient (CLI) | payer MEDICARE, BC ==
--- NOTE | 2025-04-09 12:46 | MM ---
Reason for Exam: Screening (asymptomatic). Last screening mammogram was performed 12 month(s) ago. Patient History: Menarche at age 14. First Full-Term at age 19. Hysterectomy at age 67. Postmenopausal. Risk Values: Tiffanie 5 year model risk: 1.7%. NCI Lifetime model risk: 5.3%. Prior Study Comparison: 03/31/2022 Bilateral MG 3D screening mammo w/cad, [facility]. 04/04/2023 Bilateral MG 3D screening mammo w/cad, [facility]. 04/08/2024 Bilateral MG 3D screening mammo w/cad, [facility]. Tissue Density: There are scattered areas of fibroglandular density. Findings: Analyzed By CAD. There is no suspicious group of microcalcifications or new suspicious mass in either breast. Overall Assessment: Negative, BI-RAD 1 Management: Screening Mammogram of both breasts in 1 year. . Patient should continue monthly self-breast exams. A clinical breast exam by your physician is recommended on an annual basis. This exam should not preclude additional follow-up of suspicious palpable abnormalities. Note on Tiffanie scores and lifetime risk: 1. A Tiffanie score greater than 3% is considered moderate risk. If this is the case, consider specialist referral to assess eligibility for a risk reducing agent. 2. If overall lifetime risk for the development of breast cancer is 20% or higher, the patient may qualify for future screening with alternating mammogram and breast MRI. [facility], , 04/09/2025 12:42 PM. Electronically signed and approved by: Oziel Martinez M.D.
== END | disposition home or self-care (01) ==
LOC: RADMAMWWP 10:54
PROVIDERS: ATTEND Family Medicine
DX: Z12.31 Encounter for screening mammogram for malignant neoplasm of breast (principal); R92.323 Mammographic fibroglandular density, bilateral breasts; Z78.0 Asymptomatic menopausal state
CPT/HCPCS: 77063; 77067